=== PATIENT | female | born 2000 | race Caucasian/White ===

== ENCOUNTER 2024-10-05 09:33 | Outpatient (CLI) | payer OTHER, SELFPAY ==
--- NOTE | ~2024-10-05 | US_ITS ---
CORRECTED REPORT corrected examination description [facility] [place] This report was recreated on 10/06/24. Original report was [facility] SANDER EXAMINATION: US OB <=14 wk fetus DATE: 10/05/2024 10:33 INDICATION: Amenorrhea TECHNIQUE: Real-time pelvic ultrasound utilizing a transabdominal probe was performed. The interpreting radiologist was not present for the study. COMPARISON: None. FINDINGS: The uterus measures 9.7 x 6.5 x 3.7 cm. There is an intrauterine gestational sac with a yolk sac and single living fetus. The crown rump length measures 4.1 cm, which correlates with an estimated gestational age of 11 weeks and 0 days. heart motion is identified measuring 170 beats per minute (bpm) by M-mode Doppler. The right ovary measures 2.4 x 1.6 x 1.7 cm. The left ovary measures 3.2 x 1.5 x 2.3 cm. Vascular flow identified in both ovaries on color Doppler. There is no free fluid in the pelvis. IMPRESSION: 1. Single living fetus with heart rate of 170 bpm. 2. Gestational age by ultrasound of 11 weeks 0 day(s) +/- 7 day(s) with ultrasound estimated date of delivery (KIA) of 04/26/2025. Reviewed, dictated and finalized at location A. [facility] MTDD IMPRESSION: 1. Single living fetus with heart rate of 170 bpm. 2. Gestational age by ultrasound of 11 weeks 0 day(s) +/- 7 day(s) with ultras ound estimated date of delivery (KIA) of 04/26/2025.
== END 2024-10-05 09:34 | disposition home or self-care (01) ==
PROVIDERS: Visit Provider Nurse Practitioner Obstetrics & Gynecology
DX: N91.2 Amenorrhea, unspecified (principal)
CPT/HCPCS: 76801; 76817

== ENCOUNTER 2024-11-11 10:05 | Outpatient (CLI) | payer OTHER, SELFPAY ==
[2024-11-14 07:34] LABS: Hematocrit 35.5 % (35.0-45.0); Hemoglobin 11.6 g/dL (11.7-15.5); MCV 91.7 fL (80.0-100.0); RDW 12.2 % (11.0-15.0); Red Blood Cell Count 3.87 Million/uL (3.80-5.10)
== END 2024-11-11 10:06 | disposition home or self-care (01) ==
LOC: ANHLAB 10:06
PROVIDERS: Visit Provider Nurse Practitioner Obstetrics & Gynecology
DX: Z34.90 Encounter for supervision of normal pregnancy, unspecified, unspecified trimester (principal)
CPT/HCPCS: 36415; 83021; 86850; 86900; 86901

== ENCOUNTER 2025-02-24 13:33 | Outpatient (CLI) | payer OTHER, SELFPAY ==
--- OUTSIDE RECORDS SUMMARY | 2025-02-24 13:38 | XMS_ITS | Clinical Summary ---
Author Organization [facility] Address [address] [place] [address] Care Team Providers Care Operations Lead Name Role Phone Unknown, Provider Primary Care Provider UnavailAlberto Crawley MD Unavailable Source Comments [facility],non-owned Affiliates and Associated Physician Practices is amultiple site organization consisting of ambulatory clinics and hospital sitesin [place], [place], [place] and [place]. This disclosure is being madepursuant to the Care Everywhere program and may not contain all information available regarding this patient. Last updated 18.[facility] Allergies No known active allergies Medications * Be aware that medications may not be up to date on this document. Alwaysverify current medications with the patient. fluticasone propionate (FLUTICASONE PROPIONATE) 50 MCG/ACT nasal spray Mullen 1 Mullen into each nostril once daily. Active cetirizine (ZYRTEC) 10 MG tablet Take 10 mg by mouth once daily. 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 Estimated Date of Delivery Comme nts Yes 04/22/2025 Based on last me nstrual period of 07/16/2024 Encounters Date Type Department Care Team Description 02/01/2025 8:15 AM CDT - 02/01/2025 11:59 PM CDT Hospital Encounter [facility] [address] [place] [id number] Venancio Colby MD Discharge Disposition: Home or Self Care 01/04/2025 7:30 AM CDT - 01/04/2025 11:59 PM CDT Hospital Encounter [facility] [address] [place] [address] Ronn De Guzman MD Discharge Disposition: Home or Self Care 12/09/2024 2:06 PM VACUUM CLEANER REPAIR PERSON - 12/09/2024 11:59 PM VACUUM CLEANER REPAIR PERSON Hospital Encounter [facility] [address] [place] [address] Haydee Lemons MD Discharge Disposition: Home or Self Care from Last 3 Months Family History Medical History Relation Name Comments CVA<65(female) Paternal Aunt Arrhythmia Neg Hx CVA<55(male) Neg Hx Cardiomyopathy Neg Hx Congenital Heart defect Neg Hx Heart Surgery Neg Hx Long QT Syndrome Neg Hx NM<55(male) Neg Hx NM<65(female) Neg Hx Marfan Syndrome Neg Hx Pacemaker Neg Hx Sudd. <30 Neg Hx Relation Name Status Comments Paternal Aunt Alive Social History Tobacco Use Types Packs/Day Years Used Date Smoking Tobacco: Never Assessed Estimated Date of Delivery Comme nts Yes 04/22/2025 Based on last me nstrual period of 07/16/2024 Sex and Gender Information Value Date Recorded Sex Assigned at Not on file Legal Sex Female 8:30 AM CDT Gender Identity Not on file Sexual Orientation Not on file Last Filed Vital Signs Vital Sign Reading Time Taken Comments Blood Pressure 104/60 05/26/2013 9:09 AM CDT Pulse 74 05/26/2013 9:09 AM CDT Temperature - - Respiratory Rate 20 05/26/2013 9:09 AM CDT Oxygen Saturation 99% 05/26/2013 9:09 AM CDT Inhaled Oxygen Concentration - - Weight 38 kg (83 lb 12.4 oz) 05/26/2013 9:09 AM CDT Height 149.9 cm (4' 11.02 ) 05/26/2013 9:09 AM C DT Body Mass Index 16.91 05/26/2013 9:09 AM CDT Plan of Treatment Health Maintenance Due Date Last Done Comments PAP SMEAR 2001 HIV SCREENING 2016 HPV VACCINE (1 - 3-dose series) 2016 CHLAMYDIA/GONORRHEA SCREENING 2017 MENINGOCOCCAL (Group B) VACC INE SHARED DECISION-MAKING (1 of 2 - Standard) 2017 HEPATITIS C SCREENING 11/06/2019 DTAP/TDAP/TD VACCINES (1 - Tdap) 2020 HEPATITIS B VACCINE (1 of 3 - 19+ 3-dose series) 2020 COVID-19 VACCINE (1 - 2023-2 5 season) 2024 DEPRESSION SCREENING 10/20/2024 OB-ONE HOUR GLUCOSE 01/14/2025 OB-TDAP CURRENT 01/21/2025 OB-RHOGAM INJECTION 01/28/2025 INFLUENZA VACCINE (Season Ended) 2025 ZOSTER VACCINE (1 of 2) 2051 HIB VACCINE Aged Out No longer eligi ble based on patient's age to complete this topic MENINGOCOCCAL GROUPS A/C/Y/W VACCINE Aged Out No longer eligible b ased on patient's age to complete this topic PNEUMOCOCCAL VACCINE Aged Out No long er eligible based on patient's age to complete this topic Respiratory Syncytial Virus (RSV) Vaccine Pt: or over 60 yrs (No Doses Required) Completed Procedures Procedure Name Priority Date/Time Associated Diagnosis Comments SONOGRAM - COMPLETE Routine 02/01/2025 8 :15 AM CDT Primigravida in third trimester (HCC) 28 weeks gestation of (HCC) SGA (small for gestational age), , affecting care of mother, antepartum, third trimester, other fetus (HCC) Encounter for ultrasound to assess growth (HCC) SONOGRAM - COMPLETE Routine 01/04/2025 7 :52 AM CDT Encounter for ultrasound Primigravida, antepartum 24 weeks gestation of SONOGRAM - COMPLETE Routine 12/09/2024 3 :06 PM VACUUM CLEANER REPAIR PERSON Encounter for ultrasound Primigravida, antepartum 20 weeks gestation of from Last 3 Months Results * SONOGRAM - COMPLETE (02/01/2025 8:15 AM CDT) Only the most recent of3 resultswithin the time period is included. Linked Results Indication ======== Uterine Size < Dates Anatomy Screen Complete History ====== OB History 1 Lab Tests Test Date Result NIPT Declined Maternal Assessment Physical Exam Height 160 cm, 5 ft 3 in. Weight 65 kg, 144 lb. Initial weight 54 kg, 120 lb. BMI 25.51 kg/m . Initial BMI 21.26 kg/m . Weight gain 11 kg, 24 lb Method ====== Transabdominal ultrasound. View: Good view ========= [place] . Number of fetuses: 1 Dating ====== Date Details Gest. age KIA LMP 07/16/2024 28 w + 4 d 04/22/2025 Stated KIA 28 w + 4 d 04/22/2025 U/S 02/01/2025 based upon AC, BPD, Femur, HC 29 w + 0 d 04/19/2025 Assigned dating based on the LMP, selected on 12/09/2024 28 w + 4 d 04/22/2025 General Evaluation Cardiac activity present. FHR 138 bpm. Presentation: cephalic Placenta: Placental site: left lateral Amniotic fluid: Amount of AF: normal. MVP 5.1 cm. WINDY 12.7 cm. Q1 5.1 cm, Q2 3.2 cm, Q3 1.9 cm, Q4 2.4 cm Biometry BPD 74.5 mm 29w 6d 79% Hadlock HC 270.8 mm 29w 4d 47% Hadlock AC 244.0 mm 28w 5d 45% Hadlock Femur 51.7 mm 27w 4d 13% Hadlock Humerus 49.2 mm 29w 0d 51% Aniket HC / AC 1.11 -/- Hadlock Weight Calculation: EFW 1,233 g 34% Hadlock EFW (lb,oz) 2 lb 11 oz EFW by Hadlock ([id number]) appropriate Growth Overview = Exam date GA BPD (mm) HC (mm) AC (mm) FL (mm) HL (mm) EFW (g) 12/09/2024 20w 6d 47.4 28% 171.1 5% 160.5 53% 32.9 22% 30.4 19% 367 33% 01/04/2025 24w 4d 61 51% 224.1 25% 198.4 38% 41.6 11% 39.7 28% 666 24% 02/01/2025 28w 4d 74.5 79% 270.8 47% 244 45% 51.7 13% 49.2 51% 1233 34% Anatomy The following structures appear normal: Heart / Thorax 4-chamber view. Abdomen Stomach. Kidneys. Bladder. sex: male. Impression ========= Single, live, intrauterine at 28w 4d The size is appropriate. The amniotic fluid volume is normal. No major malformations were seen within the limitations of ultrasound Follow-up ======== Follow up as clinically indicated Coding ====== Procedures [id number]: US Preg Uterus Follow Up [employer] Interaction PACS Anatomical Region Laterality Modality Other 02/01/2025 8:15 AM CDT Lior Turcios MD [facility] ORDERABLES Edited Result - Final from Last 3 Months Insurance [employer] [facility] Address: [facility] [id number] [place] [address] MEDICAID - [place] Care Teams Operations Lead Relationship Specialty Start Date End Date Unknown, Provider PCP - General 12/09/24 Alberto Tomlinson MD [address] [place] [address] Family Medicine 12/09/24
--- OUTSIDE RECORDS SUMMARY | 2025-02-24 13:38 | XMS_ITS | Clinical Summary ---
Author Organization [facility] Address [address] [place] [address] Phone Care Team Providers Care Dishroom Attendant Name Role Phone Unavailable Primary Care Provider Unavailabl e Medications VIT-IRON FUM-FOLIC AC ORAL Take by mouth. Active Active Problems Problem Noted Date Diagnosed Date Syncope 08/24/2024 Estimated Date of Delivery Comme nts Yes 04/22/2025 Based on last me nstrual period of 07/16/2024 Social History Tobacco Use Types Packs/Day Years Used Date Smoking Tobacco: Never Smokeless Tobacco: Never Tobacco Cessation:Counseling Given: Not Answered Alcohol Use Standard Drinks/Week Comments Never 0 (1 standard drink = 0.6 oz pur e alcohol) Feeling Safe Answer Date Recorded Are you in a relationship wi th someone who hurts you emotionally and/or physically? No 08/24/2024 Estimated Date of Delivery Comme nts Yes 04/22/2025 Based on last me nstrual period of 07/16/2024 Sex and Gender Information Value Date Recorded Sex Assigned at Not on file Legal Sex Female 10:45 AM ECHO VASCULAR TECH Gender Identity Not on file Sexual Orientation Not on file Last Filed Vital Signs Vital Sign Reading Time Taken Comments Blood Pressure 128/69 08/24/2024 11:23 AM ECHO VASCULAR TECH Pulse 98 08/24/2024 10:36 AM ECHO VASCULAR TECH Temperature 36.9 C (98.5 F) 08/24/2024 10:36 AM ECHO VASCULAR TECH Respiratory Rate 20 08/24/2024 10:36 AM ECHO VASCULAR TECH Oxygen Saturation 100% 08/24/2024 10:36 AM ECHO VASCULAR TECH Inhaled Oxygen Concentration - - Weight 54.4 kg (120 lb) 08/24/2024 11:14 AM ECHO VASCULAR TECH perpatient Height 161.3 cm (5' 3.5 ) 08/24/2024 11:14 AM CS T Body Mass Index 20.92 08/24/2024 11:14 AM ECHO VASCULAR TECH Plan of Treatment Upcoming Encounters Date Type Department Care Team (Late st Contact Info) Description 04/22/2025 Hospital Encounter [facility] OB Triage [address] [place] [address] Sarah Rogers MD [address] [place] [address] Health Maintenance Due Date Last Done Comments CHLAMYDIA SCREENING (ANNUAL) 11-24 YEARS 2012 HPV/Cotest (21-29) 2022 DTAP/TDAP/TD VACCINES (8 - T d or Tdap) 05/28/2023 05/28/2013, 05/28/2013, 12/19/2005, Additional history exists INFLUENZA VACCINE (#1) 2024 07/30/2017 CERVICAL CANCER SCREENING 07/10/2026 PAP SMEAR 07/10/2026 07/10/2023 HEPATITIS B VACCINES Completed 11/11/2002, 04/09/2002, 02/26/2002 HPV VACCINES Completed 05/19/2014, 05/28/2013 RSV VACCINE (60+ or ) (No Doses Required) Completed Insurance [employer] Advance Directives For more information, please contact: [phone] * Full Code (Latest Code Status on File) Date Activated Date Inactivated Comments 08/24/2024 11:08 AM 08/24/2024 3:46 PM
[2025-02-24 13:59] LABS: Hematocrit 35.6 % (37.0-47.0); Hemoglobin 11.7 g/dL (12.0-15.0); Mean Corpuscular HGB Conc 32.9 g/dl (32-36); Mean Corpuscular Hemoglobin 30.2 pg (26-34); Mean Corpuscular Volume 91.8 fl (80-100); Platelet Count Result 183 k/mm3 (150-375); Red Blood Count 3.88 M/mm3 (4.2-5.4); Red Cell Distribution Width 12.6 % (11.5-14.5); White Blood Count 10.8 K/mm3 (4.5-10.0)
[2025-02-24 16:35] LABS: Syphilis IgG/IgM Antibody Negative (Negative)
[2025-02-24 16:49] LABS: HIV 1/2 Ab P24 Ag Result Negative (Negative)
== END 2025-02-24 13:34 | disposition home or self-care (01) ==
LOC: ANHLAB 13:37
PROVIDERS: PCP Internal Medicine; Visit Provider Nurse Practitioner Obstetrics & Gynecology
DX: Z34.90 Encounter for supervision of normal pregnancy, unspecified, unspecified trimester (principal)
CPT/HCPCS: 36415; 85027; 86593; 86703; G0432

== ENCOUNTER 2025-03-28 10:57 | Outpatient (CLI) | payer OTHER, SELFPAY ==
[2025-03-28] VITALS (7 sets, daily range): BP systolic 90–116; BP diastolic 42–66; PULSE 74–88
[2025-03-28 11:53] LABS: Basophils Absolute Auto 0.1 K/mm3 (0.0-0.1); Basophils Percent Auto 0.6 % (0.2-1.2); Eosinophils Absolute Auto 0.2 K/mm3 (0-0.3); Eosinophils Percent Auto 1.7 % (0-4.4); Hematocrit 35.1 % (37.0-47.0); Hemoglobin 11.6 g/dL (12.0-15.0); Immature Granulocyte Absolute 0.16 K/mm3 (0.00-0.031); Immature Granulocyte Percent A 1.6 % (0-0.5); Lymphocytes Absolute Auto 1.96 K/mm3 (0.9-3.2); Lymphocytes Percent Auto 19.6 % (18.3-44.2); Mean Corpuscular Hemoglobin 30.3 pg (26-34); Mean Corpuscular Volume 91.6 fl (80-100); Mean Platelet Volume 10.3 fl (7.4-10.4); Monocytes Absolute Auto 0.7 K/mm3 (0.1-0.6); Monocytes Percent Auto 7.3 % (2.6-8.5); Neutrophils Absolute Auto 6.9 K/mm3 (1.3-6.7); Neutrophils Percent Auto 69.2 % (45.5-73.1); Platelet Count Result 174 k/mm3 (150-375); Red Blood Count 3.83 M/mm3 (4.2-5.4); Red Cell Distribution Width 12.7 % (11.5-14.5)
[2025-03-28 12:00] LABS: Creatinine Urine 60.7 mg/dL; Total Protein Urine Random 12 mg/dL
[2025-03-28 12:04] LABS: Alanine Aminotransferase 19 U/L (6-35); Albumin Level 3.3 g/dL (3.5-5.1); Alkaline Phosphatase 184 U/L (38-126); Anion Gap 7 mmol/L (4-12); Aspartate Amino Transferase 24 U/L (14-36); Bilirubin,Total 0.2 mg/dL (0.2-1.3); Blood Urea Nitrogen 7 mg/dL (7-17); Calcium 8.6 mg/dL (8.4-10.2); Carbon Dioxide 20 mmol/L (22-30); Chloride 109 mmol/L (98-107); Estimated Glomerular Filt Rate > 60; Glucose 112 mg/dL (65-110); Potassium 3.4 mmol/L (3.4-5.0); Sodium 136 mmol/L (137-145); Total Protein 6.2 g/dL (6.3-8.2); Uric Acid 4.9 mg/dL (2.5-7.5)
[2025-03-28 12:07] LABS: Add Urine Microscopic? YES; Appearance Urine Clear (Clear); Bacteria Urine 2+ /hpf; Bilirubin Urine Negative (Negative); Blood Urine Negative (Negative); Color Urine Yellow (Yellow); Glucose Urine UA Negative (Negative); Ketones Urine Negative (Negative); Leukocyte Esterase Ur Trace LEU/UL (Negative); Need Manual Microscopic Reviewed; Nitrate Urine Negative (Negative); Non Pathogenic Casts 0-2; Protein Urine Negative (Negative); RBC Urine 0-2 /hpf (0-2); Specific Grav Ur 1.014 (1.001-1.035); Squamous Epithelial Cell Urine None Seen /hpf (Few); Urobilinogen Urine 0.2 mg/dL (<2.0); WBC Urine 21-50 /hpf (0-3); pH Urine 7.5 (5.0-9.0)
--- OUTSIDE RECORDS SUMMARY | 2025-03-28 12:37 | XMS_ITS | Referral Summary ---
Author Organization [facility] Address [address] [place] [address] Care Team Providers Care Manager Cost Name Role Phone Lorena Mcgraw MD Primary Care Provider [phone] Lorena Mcgraw MD Unavailable [phone] Allergies No known active allergies Medications cetirizine (ZyrTEC) 10 mg tablet Take 1 tablet (10 mg total) by mouth daily Active naproxen (NAPROSYN) 500 mg tablet Take 1 tablet (500 mg total) by mouth 2 (two) times a day as needed for pain (pain) 60 tablet 1 Active Additional Information Patient taking differently:500 mg oralAs needed, pain, pain, Reported on 01/23/2023 ALPRAZolam (XANAX) 0.25 mg tabletIndicatio ns:Anxiety and depression Take 1 tablet (0.25 mg total) by mouth daily as needed for anxiety 30 tablet 2 2 Active zolpidem (AMBIEN) 5 mg tablet Take 1 tablet (5 mg total) by mouth nightly 30 tablet 3 Active fluticasone propionate (FLONASE) 50 mcg/actuation nasal sprayIndication s:Fever with sore throat,Sore throat,Strep throat,Acute non-recurrent maxillary sinusitis Administer 2 sprays into each nostril daily 16 g 3 Active mometasone (ELOCON) 0.1 % creamIndication s:Dermatitis Apply topically daily 30 g 3 Active Active Problems Problem Noted Date Diagnosed Date Encounter for well woman exa m with routine gynecological exam 07/10/2023 Assessment & Plan (07/24/2023 11:06 AM CDT): Pap done Well adult exam 07/10/2023 Dermatitis 05/16/2023 Assessment & Plan (05/16/2023 9:36 AM CDT): New Likely from new cream Order elocon Sore throat 01/17/2023 Strep throat 01/17/2023 Assessment & Plan (01/17/2023 7:19 AM CDT): Strep test positive Flu swab/covid swab negative Order zpack, flonase, singualir Fever with sore throat 01/06/2023 Assessment & Plan (01/17/2023 7:19 AM CDT): Flu swab/covid swab negative Order zpack, flonase, singualir Low serum vitamin D 06/18/2021 Assessment & Plan (12/17/2021 10:26 AM DOCUMENT IMAGING MANAGER): The patient is currently on vitamin-D replacement that is been ordered by her primary care physician. Assessment & Plan (06/18/2021 10:20 AM CDT): I did advise the patient to call or message her primary care physician regarding the low vitamin-D level. The patient verbalized understanding. The patient was informed that taking vitamin-D may help with her energy level. Anxiety and depression 05/18/2021 Assessment & Plan (01/14/2022 9:22 PM CDT): Chronic Patient would like to continue with xanax PRN for now Refer to psych Assessment & Plan (12/08/2021 10:27 AM DOCUMENT IMAGING MANAGER): Chronic Patient would like to continue with xanax PRN for now Refer to psych Assessment & Plan (10/31/2021 5:34 AM DOCUMENT IMAGING MANAGER): Still not controlled Retry abilify Use xanax PRN Assessment & Plan (06/09/2021 7:23 PM CDT): Improving Increase wellbutrin to 300mg daily Assessment & Plan (05/18/2021 9:46 AM CDT): Uncontrolled Start wellbutrin Continue with counselor Bilateral swelling of feet 03/14/2021 Assessment & Plan (03/21/2021 4:21 AM CDT): New Unknown etiology Order xray Order labs Refer to podiatry Pain in both feet 03/14/2021 Assessment & Plan (03/21/2021 4:21 AM CDT): New Unknown etiology Order xray Order labs Refer to podiatry Chronic fatigue 02/06/2021 Assessment & Plan (02/06/2021 11:07 AM CDT): I will check a CBC, TSH, vitamin B12 and vitamin-D level. Snoring 12/12/2020 Assessment & Plan (08/25/2023 11:03 AM DOCUMENT IMAGING MANAGER): She has primary snoring and her does not witnessed any apneic episodes. Assessment & Plan (01/23/2023 3:10 PM CDT): She is maintaining her weight and still has some snoring. Assessment & Plan (07/25/2022 3:51 PM CDT): Will continue positional therapy Assessment & Plan (03/14/2022 11:48 AM CDT): Patient will continue with positional therapy. Patient and I discussed weight reduction and exercise along with a snore guard. Assessment & Plan (12/17/2021 10:26 AM DOCUMENT IMAGING MANAGER): The patient was encouraged to try and exercise. Assessment & Plan (06/18/2021 10:19 AM CDT): Patient will continue to use positional therapy and exercise program. Assessment & Plan (02/06/2021 11:06 AM CDT): The patient had light snoring during the nocturnal polysomnogram and there are no snoring related arousals. Assessment & Plan (12/12/2020 2:20 PM DOCUMENT IMAGING MANAGER): The patient will continue to practice positional therapy. Sleep paralysis 12/12/2020 Assessment & Plan (08/25/2023 11:03 AM DOCUMENT IMAGING MANAGER): Her sleep paralysis has resolved. She will follow-up with me on a p.r.n. basis. Assessment & Plan (01/23/2023 3:10 PM CDT): The patient is having an episode of sleep paralysis about once every 3 months. Assessment & Plan (07/25/2022 4:08 PM CDT): I would recommend the patient get a referral for psychiatry. We do not have any evidence on her sleep study/MSLT that would explain the sleep paralysis and hallucinations. Patient states that she does have anxiety and depression that is not currently being treated adequately. Patient sleep paralysis/hallucinations occur more often when she is not sleeping at home. Appears to be stress related. Assessment & Plan (03/14/2022 11:49 AM CDT): The patient has a history of depression and anxiety. The patient also has disruptive sleep patterns. Assessment & Plan (12/17/2021 10:26 AM DOCUMENT IMAGING MANAGER): The patient's last episode of sleep paralysis was approximately 1 month ago. She states they sleep paralysis occurring loss. Assessment & Plan (06/18/2021 10:19 AM CDT): The patient states that she has had 2 episodes of sleep paralysis since her last visit. Assessment & Plan (02/06/2021 11:07 AM CDT): The patient continues to have 2-4 episodes of sleep paralysis per month. There is no evidence of obstructive sleep apnea or narcolepsy. Assessment & Plan (12/12/2020 2:20 PM DOCUMENT IMAGING MANAGER): Due to the sleep paralysis I have ordered a nocturnal polysomnogram with dedicated MSLT Acute non-recurrent maxillary sinusitis 11/15/19 Assessment & Plan (01/17/2023 7:19 AM CDT): Flu swab/covid swab negative Order vanessa kulkarni, singualir Assessment & Plan (11/15/2020 5:21 AM DOCUMENT IMAGING MANAGER): New Order shad, vanessa, margarito-d Current moderate episode of major depressive disorder without prior episode 05/02/2020 Assessment & Plan (05/02/2020 3:04 PM CDT): Seeing counselor already regularly Discussed meds, wants to hold off on anything else Tried Lexapro and celexa in the past Overall mood has improved with new living situation Monitor closely Anxiety 05/02/2020 Assessment & Plan (04/02/2021 6:08 AM CDT): Uncontrolled Start celexa at 20mg Assessment & Plan (11/02/2020 2:31 PM DOCUMENT IMAGING MANAGER): Continue hydroxyzine PRN for now - aware to avoid taking with Ambien at bedtime, but may use for daytime anxiety/panic attacks. Seeing counselor. Discussed medication change, but patient prefers to keep things the same for now. Assessment & Plan (05/02/2020 3:04 PM CDT): Likely contributing to sleep issues Continue atarax PRN for anxiety/sleep Insomnia 05/02/2020 Assessment & Plan (08/25/2023 11:03 AM DOCUMENT IMAGING MANAGER): The patient's insomnia is under control with cognitive behavioral therapy for insomnia. Assessment & Plan (01/23/2023 3:09 PM CDT): The insomnia has improved with journaling and cognitive behavioral therapy for insomnia Assessment & Plan (07/25/2022 3:51 PM CDT): Will continue cognitive behavior therapy for insomnia Assessment & Plan (03/14/2022 11:48 AM CDT): I have discussed cognitive behavior therapy with the patient. The patient was also provided 2 pamphlets in regards to sleeping better and insomnia. I have instructed the patient the gold standard of treating insomnia is cognitive behavior therapy. Avoidance of caffeine sources is strongly encouraged. Sleep restriction and Sleep hygiene issues are reviewed. The use of sedative hypnotics for temporary relief is appropriate; we discussed the addictive nature of these drugs. The patient does have a prescription for Ambien as provided by her primary care Assessment & Plan (12/17/2021 10:26 AM DOCUMENT IMAGING MANAGER): The patient will go back on to the Ambien 5 mg p.o. Q bedtime. The patient was informed to improve on her sleep-wake schedule. Assessment & Plan (06/18/2021 10:18 AM CDT): Patient continue to use Ambien 5 mg p.o. Q bedtime. Assessment & Plan (02/06/2021 11:06 AM CDT): The patient is occasionally using Ambien 5 mg at bedtime. Assessment & Plan (12/12/2020 2:20 PM DOCUMENT IMAGING MANAGER): The patient continue to use Ambien 5 mg PO Q HS. Assessment & Plan (11/02/2020 2:30 PM DOCUMENT IMAGING MANAGER): Seeing sleep medicine, Dr. Mandel Continue Ambien PRN Assessment & Plan (05/02/2020 3:05 PM CDT): Irregular sleep, trouble falling and staying asleep - sleep talking and episodes of sleep paralysis per patient- refer to sleep med Other constipation 05/02/2020 Assessment & Plan (05/02/2020 3:07 PM CDT): Advised exercise, increased fluids, increased fiber intake Ok for colace PRN Would avoid frequent use of laxatives Immunizations Immunization Administration Dates Next Due DTaP 12/19/2005, 3,05/25/2002,04/09,02/26/2002 DTaP, Unspecified 12/19/2005, 3,05/25/2002,04/09,02/26/2002 HPV, Quadrivalent 05/19/2014,05/28/2013 Hep A, 3 Dose 12/19/2005 Hep B, Adolescent or Pediatric 11/11/2002,2001,02/26/2002 Hep B, Unspecified 11/11/2002,04/09/2002, 002 HiB 12/19/2005, 2,04/09/2002,02/26 Hib (PRP-T) 11/11/2002, 2,04/09/2002,02/26 IPV 12/19/2005, 2,04/09/2002,02/26 Influenza, Quadrivalent, Spl it, Preservative Free, Intramuscular 07/30/2017 Influenza, Unspecified 07/20/2022(Deferr ed: Patient Refused),09/17/2021(Deferred: Patient Refused),08/08/2020(Deferred: Patient Refused),08/08/2020(Deferred: Patient Refused),07/20/2020(Deferred: Patient Refused),12/19/2005,11/07/2005 MMR 12/19/2005, 6,11/11/2005,11/11 Meningococcal Conjugate (Menveo) 04/26/2019 Meningococcal MCV4P (Menactra) 05/28/2013 Pfizer SARS-CoV-2 Monovalent Vaccination (12+ Yrs) PURPLE 04/13/2021,03/23/2021 Pneumococcal Conjugate PCV 13 12/19/2005, 002 Pneumococcal Polysaccharide PPV23 12/19/2005 Polio, Unspecified 12/19/2005, 2,04/09/2002,02/26 Tdap 05/28/2013 Varicella 05/28/2013,02/10/2003,02/10/2003 Social History Tobacco Use Types Packs/Day Years Used Date Smoking Tobacco: Never Smokeless Tobacco: Never Alcohol Use Standard Drinks/Week Comments Never 0 (1 standard drink = 0.6 oz pur e alcohol) AUDIT-C Answer Date Recorded Q1: How often do you have a drink containing alc ohol? Monthly or less 05/16/2023 Q2: How many drinks containi ng alcohol do you have on a typical day when you are drinking? 1 or 2 05/16/2023 Q3: How often do you have si x or more drinks on one occasion? Never 05/16/2023 PHQ-2 Answer Date Recorded PHQ-2 Total Score (If total score is 3 or more points, staff should administer the PHQ-9) 0 01/06/2023 Personal Safety Answer Date Recorded Getting School Help Needed Not on file 11/17 Comments No Sex and Gender Information Value Date Recorded Sex Assigned at Not on file Legal Sex Female 12:59 PM CDT Gender Identity Female 09/17/2021 2:47 PM DOCUMENT IMAGING MANAGER Sexual Orientation Straight 09/17/2021 2: 47 PM DOCUMENT IMAGING MANAGER Last Filed Vital Signs Vital Sign Reading Time Taken Comments Blood Pressure 94/52 08/25/2023 10:34 AM DOCUMENT IMAGING MANAGER Pulse 90 08/25/2023 10:34 AM DOCUMENT IMAGING MANAGER Temperature 36.7 C (98.1 F) 08/25/2023 10:34 AM DOCUMENT IMAGING MANAGER Respiratory Rate 18 08/25/2023 10:34 AM DOCUMENT IMAGING MANAGER Oxygen Saturation 91% 08/25/2023 10:34 AM DOCUMENT IMAGING MANAGER Inhaled Oxygen Concentration - - Weight 54 kg (119 lb) 08/25/2023 10:34 AM DOCUMENT IMAGING MANAGER Height 162.6 cm (5' 4) 08/25/2023 10:34 AM DOCUMENT IMAGING MANAGER Body Mass Index 20.43 08/25/2023 10:34 AM DOCUMENT IMAGING MANAGER Plan of Treatment Not on file Procedures Procedure Name Priority Date/Time Associated Diagnosis Comments PAP WITH REFLEX TO HIGH RISK HPV Routine 07/10/2023 11:40 AM CDT Encounter for well woman exam with routine gynecological exam Well adult exam from Last 3 Months or Most Recently Relevant to Health Maintenance Results * Pap with reflex to High Risk HPV and Genotyping (Cytology Component) (07/10/2023 11:40 AM CDT) Thin prep (Pap test) 07/10/2023 11:40 AM CDT 07/11/2023 11:40 AM CDT Narrative PATHOLOGY [facility] - 07/14/2023 1:50 PM CDT [facility] Department of Pathology [address] [place], [place] [id number] Final Report Note to Patients: This report may contain a detailed description of human tissue sent by a health care provider to the laboratory for pathologic evaluation. The content of this report is essential for diagnosis and may provide important critical findings. This information may be unfamiliar to patients to review without a medical professional present. It is advised that the patient review this report in the presence of a health care provider who can answer questions and explain the details. Patient Name: JO GRIFFIN Address: [address] [place] [address] [place] [address] Gender: F : 2000 (Age: 22) Service: Location: [facility] : [id number] Hospital #: [id number] Patient Type: [facility] SPECIMEN Taken: 07/10/2023 Received: 07/11/2023 Accessioned:: 07/11/2023 Reported: 07/14/2023 Physician(s): Dr. Lorena Mcgraw M.D. [facility] Diagnosis: SOURCE OF SPECIMEN Imaged Thinprep Pap Test w/ Reflex HPV - Therapist Occupational Cytologic Material: STATEMENT OF ADEQUACY - Specimen satisfactory for evaluation (vaginal pap) GENERAL CATEGORIZATION: - Negative for intraepithelial lesion or malignancy ABNER Latham(ASCP) Report Electronically Reviewed and Signed Out By ABNER Latham(ASCP) 07/14/2023 13:50:46Specimen(s) Received: A: Imaged Thinprep Pap Test w/ Reflex HPV - Therapist Occupational Cytologic Material Clinical History: The Pap test is a screening test used to aid in the detection of cervical cancer and its precursors. It should not be the sole means by which malignant and premalignant lesions are diagnosed. Both false negative and false positive results may occur. It also has poor sensitivity for the detection of endometrial lesions and should not be used to evaluate suspected endometrial abnormalities. For these reasons it is most important to obtain Pap tests at regular intervals. The performance characteristics of some immunohistochemical stains, fluorescence in-situ hybridization tests and immunophenotyping by flow cytometry cited in this report (if any) were determined by the Surgical Pathology Department at [facility] as part of an ongoing quality improvement analyst program and in compliance with federally mandated regulations drawn from the Clinical Laboratory Improvement Act of 1988 (CLIA '88). Some of these tests rely on the use of analyte specific reagents and are subject to specific labeling requirements by the US Food and Drug Administration. Such diagnostic tests may only be performed in a facility that is certified by the Department of Health and Human Services as a high complexity laboratory under CLIA '88. The FDA has determined that such clearance or approval is not necessary. This test is used for clinical purposes. It should not be regarded as investigational or for research. Nevertheless, federal rules concerning the medical use of analyte specific reagents require that the following disclaimer be attached to the report: This test was developed and its performance characteristics determined by the Surgical Pathology Department [facility]. It has not been cleared or approved by the U. S. Food and Drug Administration. Lorena Mcgraw MD LAB CYTOLOGY ORDERABLES F inal Result PATHOLOGY [facility] from Last 3 Months or Most Recently Relevant to Health [place] [address] [facility] Member Subscriber Plan / Payer (Ef fective 2021-Present) Name:Oleg Jo Relation to Subscriber:Self Name:Alex Dejesusth Payer ID:[id number] (NAIC) Group ID:Not on file Type:MEDICAID RISK OTHER Address: [address] [place], [place] [id number] [place] [address] [facility] Care Teams Manager Cost Relationship Specialty Start Date End Date Lorena Mcgraw MD PCP - General 05/09/20 Lorena Mcgraw MD Family Medicine 05/09/20
--- OUTSIDE RECORDS SUMMARY | 2025-03-28 12:37 | XMS_ITS | Clinical Summary ---
Author [facility] Address [address] [place] [address] Care Team Providers Care Associate Manager Name Role Phone Lorena Mcgraw MD Primary Care Provider [phone] Lorena Mcgraw MD Unavailable [phone] Allergies No known active allergies Medications cetirizine [...] 06/18/2021 Assessment & Plan (12/17/2021 10:26 AM BARREL RIFLER BROACH): The patient is currently on vitamin-D replacement [...] psych Assessment & Plan (12/08/2021 10:27 AM BARREL RIFLER BROACH): Chronic Patient would like to continue with xanax PRN for now Refer to psych Assessment & Plan (10/31/2021 5:34 AM BARREL RIFLER BROACH): Still not controlled Retry abilify Use xanax [...] 12/12/2020 Assessment & Plan (08/25/2023 11:03 AM BARREL RIFLER BROACH): She has primary snoring and her does [...] guard. Assessment & Plan (12/17/2021 10:26 AM BARREL RIFLER BROACH): The patient was encouraged to try and exercise. Assessment & Plan (06/18/2021 10:19 AM CDT): Patient will continue to use positional therapy and exercise program. Assessment & Plan (02/06/2021 11:06 AM CDT): The patient had light snoring during the nocturnal polysomnogram and there are no snoring related arousals. Assessment & Plan (12/12/2020 2:20 PM BARREL RIFLER BROACH): The patient will continue to practice positional therapy. Sleep paralysis 12/12/2020 Assessment & Plan (08/25/2023 11:03 AM BARREL RIFLER BROACH): Her sleep paralysis has resolved. She will [...] patterns. Assessment & Plan (12/17/2021 10:26 AM BARREL RIFLER BROACH): The patient's last episode of sleep paralysis [...] narcolepsy. Assessment & Plan (12/12/2020 2:20 PM BARREL RIFLER BROACH): Due to the sleep paralysis I have ordered a nocturnal polysomnogram with dedicated MSLT Acute non-recurrent maxillary sinusitis 11/15/19 Assessment & Plan (01/17/2023 7:19 AM CDT): Flu swab/covid swab negative Order vanessa kulkarni, singualir Assessment & Plan (11/15/2020 5:21 AM BARREL RIFLER BROACH): New Order shad, vanessa, margarito-d Current moderate [...] 20mg Assessment & Plan (11/02/2020 2:31 PM BARREL RIFLER BROACH): Continue hydroxyzine PRN for now - aware to avoid taking with Ambien at bedtime, but may use for daytime anxiety/panic attacks. Seeing counselor. Discussed medication change, but patient prefers to keep things the same for now. Assessment & Plan (05/02/2020 3:04 PM CDT): Likely contributing to sleep issues Continue atarax PRN for anxiety/sleep Insomnia 05/02/2020 Assessment & Plan (08/25/2023 11:03 AM BARREL RIFLER BROACH): The patient's insomnia is under control with [...] care Assessment & Plan (12/17/2021 10:26 AM BARREL RIFLER BROACH): The patient will go back on to [...] bedtime. Assessment & Plan (12/12/2020 2:20 PM BARREL RIFLER BROACH): The patient continue to use Ambien 5 mg PO Q HS. Assessment & Plan (11/02/2020 2:30 PM BARREL RIFLER BROACH): Seeing sleep medicine, Dr. Mandel Continue Ambien [...] Unspecified 12/19/2005, 2,04/09/2002,02/26 Tdap 05/28/2013 Varicella 05/28/2013,02/10/2003,02/10/2003 Surgical History Surgery Date Site/Laterality Comments NO PAST SURGERIES Medical History Medical History Date Comments Anxiety Depression Urinary tract infection Family History Medical History Relation Name Comments No Known Problems Father No Known Problems Mother Diabetes Paternal Grandfather Vu Griffin Breast cancer Paternal Grandmother Cystic fibrosis Sister Relation Name Status Comments Brother Alive Father Alive Mother Alive Paternal Grandfather Vu Griffin Alive Paternal Grandmother Alive Sister Alive Social History Tobacco Use Types Packs/Day [...] CDT Gender Identity Female 09/17/2021 2:47 PM BARREL RIFLER BROACH Sexual Orientation Straight 09/17/2021 2: 47 PM BARREL RIFLER BROACH Obstetrics History Last Filed Vital Signs Vital Sign Reading Time Taken Comments Blood Pressure 94/52 08/25/2023 10:34 AM BARREL RIFLER BROACH Pulse 90 08/25/2023 10:34 AM BARREL RIFLER BROACH Temperature 36.7 C (98.1 F) 08/25/2023 10:34 AM BARREL RIFLER BROACH Respiratory Rate 18 08/25/2023 10:34 AM BARREL RIFLER BROACH Oxygen Saturation 91% 08/25/2023 10:34 AM BARREL RIFLER BROACH Inhaled Oxygen Concentration - - Weight 54 kg (119 lb) 08/25/2023 10:34 AM BARREL RIFLER BROACH Height 162.6 cm (5' 4) 08/25/2023 10:34 AM BARREL RIFLER BROACH Body Mass Index 20.43 08/25/2023 10:34 AM BARREL RIFLER BROACH Plan of Treatment Health Maintenance Due Date Last Done Comments Chlamydia and Gonorrhea (GC/ CT) Screening 2000 Hepatitis C Screening 2000 Meningococcal B Vaccine (1 o f 2 - Standard) 2017 DTaP/Tdap/Td Vaccine (7 - Td or Tdap) 05/28/2023 05/28/2013, 12/19/2005, 12/19/2005, Additional history exists Depression Screening 01/07/2024 01/06/2023, 06/08/2021, 06/08/2021, Additional history exists Covid-19 Vaccine (3 - 2023-2 5 season) 2024 04/13/2021, 03/23/2021 Cervical Cancer Screening 07/10/2024 07/10/2023 Regular Well Visit/Exam 18-64 07/10/2024 07/10/2023 Influenza Vaccine (Season Ended) 2025 07/30/2017, 12/19/2005, 11/07/2005 Hepatitis B Screening Completed 11/11/2002 , 11/11/2002, 04/09/2002, Additional history exists Pneumococcal vaccine <65 Completed 006, 12/19/2005, 02/10/2002 Varicella Vaccines Completed 05/28/2013, 0 02/10/2003, 02/10/2003 HPV Vaccines Completed 05/19/2014, 05/28/2013 Procedures Procedure Name Priority Date/Time Associated Diagnosis [...] CDT 07/11/2023 11:40 AM CDT Narrative PATHOLOGY [facility] - 07/14/2023 1:50 PM CDT [facility] Department of Pathology [address] [place], [place] [id number] Final Report Note to Patients: This report [...] the details. Patient Name: JO GRIFFIN Address: [address] [place] [address] [place] [address] Gender: F : 2000 (Age: 22) Service: Location: [facility] #: [id number] Patient Type: [facility] SPECIMEN Taken: 07/10/2023 Received: 07/11/2023 Accessioned:: 07/11/2023 Reported: 07/14/2023 Physician(s): Dr. Lorena Mcgraw M.D. [facility] Diagnosis: SOURCE OF SPECIMEN Imaged Thinprep Pap Test w/ Reflex HPV - Configuration Management Manager Cytologic Material: STATEMENT OF ADEQUACY - Specimen satisfactory for evaluation (vaginal pap) GENERAL CATEGORIZATION: - Negative for intraepithelial lesion or malignancy ABNER Latham(ASCP) Report Electronically Reviewed and Signed Out By ABNER Latham(ASCP) 07/14/2023 13:50:46Specimen(s) Received: A: Imaged Thinprep Pap Test w/ Reflex HPV - Configuration Management Manager Cytologic Material Clinical History: The Pap test [...] determined by the Surgical Pathology Department at [facility] as part of an ongoing quality assurance lead program and in compliance with federally mandated [...] characteristics determined by the Surgical Pathology Department [facility]. It has not been cleared or approved by the U. S. Food and Drug Administration. Lorena Mcgraw MD LAB CYTOLOGY ORDERABLES F inal Result PATHOLOGY [facility] from Last 3 Months or Most Recently Relevant to Health Maintenance Insurance [facility] [place] [address] [facility] Care Teams Associate Manager Relationship Specialty Start Date End Date Lorena Mcgraw MD PCP - General 05/09/20 Lorena Mcgraw MD Family Medicine 05/09/20
--- OUTSIDE RECORDS SUMMARY | 2025-03-28 12:37 | XMS_ITS | Data Portability ---
Author Organization [facility], [employer] Address [address] [facility] [address] [facility] [address] [place] [address] Assessment Encounter Date Assessment Date Assessment LastModified by Organization Details LastModified Time 12/10/2023 12/10/2023 New patient presented for admission to the practice. Studies ordered as below. Discussed plan with patient, who expressed understanding . Follow up as noted below. [email or web address] Not available 12/10/2023 15:05:55 12/16/2024 12/16/2024 Patient presented for follow up. Studies ordered as below. Discussed plan with patient/dee carreroer, who expressed understanding . Follow up as noted below. New patient presented for admission to the practice. Studies ordered as below. Discussed plan with patient, who expressed understanding . Follow up as noted below. [email or web address] Not available 12/16/2024 13:14:47 Plan of Treatment Reminders Order Date Submit Date Provider Last Modified By Organization Details Last Modified Time Details Appointments ESTABLISH ED PATIENT 15 2025 11:00A Gabriella Souza MD Not available Not available Not available Lab lipid panel w/ direct LDL, serum 2024 025 [facility], [address], [place], [address], 12/16/2024 13:23:51 CMP, serum or plasma 2024 025 [facility], [address], [place], [address], 01/21/2025 10:37:22 CBC w/ auto diff 2024 025 [facility], [address], [place], [address], 01/21/2025 10:37:21 TSH, serum or plasma [address] [facility], [address], [place], [address], 12/16/2024 13:23:51 hemoglobi n A1c, QN, blood [address] [facility], [address], [place], [address], 12/16/2024 13:23:50 C-peptide , serum [address] [facility], [address], [place], [address], 01/21/2025 10:37:25 tb (M tuberculo sis), ifn-gamma mayte, blood 2023 024 [facility], [address], [place], [address], 12/10/2023 15:14:56 lipid panel w/ direct LDL, serum 2023 024 [facility], [address], [place], [address], 12/10/2023 15:14:56 CMP, serum or plasma [address] [facility], [address], [place], [address], 05/25/2024 17:12:52 CBC w/ auto diff [address] [facility], [address] [place], [address], 05/25/2024 17:12:53 TSH, serum or plasma 2023 024 [facility], [address] [place], [address], 12/10/2023 15:14:56 hemoglobi n A1c, QN, blood [address] [facility], [address], [place], [address], 12/10/2023 15:14:56 C-peptide , serum [address] [facility], [address], [place], [address], 12/10/2023 15:14:56 glucose tolerance test, 2-hour 2023 024 [facility], [address], [place], [address], 12/10/2023 15:14:56 Referral cardiolog ist referral 2024 025 [place] [address] Bryan Newton MD, [address] [facility], [place], [address], 12/16/2024 13:43:[address] referral [email or web address] [facility], [address] [facility] [address], [place], [address], 12/16/2024 13:43:35 Procedures None recorded. Surgeries None recorded. Imaging electroca rdiogram 2024 025 [facility], [facility], [address], [place], [address], 12/16/2024 13:53:36 Medication Orders None recorded. Patient TargetsNo targets recorded. 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 6 low SRINIVAS L RANGE BASED ON CJ COL 2 (DCCT /NGSP ): Non-D iabet ic: < 5.7% Pre-D iabet es: 5.7 - 6.4% Diabe dahlia: => 6.5% GLYCE NGA CONTR OL: < 7.0% Not Available [facility] [address] [facility] [address], [place], [address], 05/25/2024 17:12:51 05/20/20 24 05/20/2024 HEMOG LOBIN A1C estimated average glucose 87 Not Available [facility] [address] [facility] [address], [place], [address], 05/25/2024 17:12:51 05/20/20 24 05/20/2024 *C-PE PTIDE C-peptide 1.1 NG/mL 1.1-4. 4 NOTE: REFER ENCE RANGE APPLI ES TO FASTI NG SAMPL E ONLY. Not Available [facility] [address] [facility] [address], [place], [address], 05/25/2024 17:12:51 05/20/20 24 05/20/2024 COMPR EHENS TRES METAB OLIC PANEL sodium 140 mmol/ L 134-[address] [facility] [address] [facility] [address], [place], [address], 05/25/2024 17:12:52 05/20/20 24 05/20/2024 COMPR EHENS TRES METAB OLIC PANEL potassium 4.1 mmol/ L 3.5-5. 2 Not Available [facility] [address] [facility] [address], [place], [address], 05/25/2024 17:12:52 05/20/20 24 05/20/2024 COMPR EHENS TRES METAB OLIC PANEL chloride 104 mmol/ L 97-108 Not Available [facility] [address] [facility] [address], [place], [address], 05/25/2024 17:12:52 05/20/20 24 05/20/2024 COMPR EHENS TRES METAB OLIC PANEL carbon dioxide (co2) 25.0 mmol/ L 18.0-2 9.0 Not Available [facility] [address] [facility] [address], [place], [address], 05/25/2024 17:12:52 05/20/20 24 05/20/2024 COMPR EHENS TRES METAB OLIC PANEL glucose 81 mg/dL 65-99 Srinivas l Fasti ng: < 100 mg/dL Impai red Fasti n - 125 mg/dL Diagn ostic of Diabe dahlia: => 126 mg/dL Ameri can Diabe dahlia Assoc iatio n, [address] [facility] [address] [facility] [address], [place], [address], 05/25/2024 17:12:52 05/20/20 24 05/20/2024 COMPR EHENS TRES METAB OLIC PANEL urea nitrogen (BUN) 15 mg/dL 6-20 Not Available [facility] [address] [facility] [address], [place], [address], 05/25/2024 17:12:52 05/20/20 24 05/20/2024 COMPR EHENS TRES METAB OLIC PANEL creatinine 0.68 mg/dL 0.57-1 .00 Not Available [facility] [address] [facility] [address], [place], [address], 05/25/2024 17:12:52 05/20/2005/20/2024 COMPR EHENS TRES METAB OLIC PANEL eGFR 126 mL/mi nute/ 1.73_ m2 >59 MDRD Study Equat ion: The calcu lated GFR is NOT appli cable for pedia tric (< 18 years old) and > 70 year old patie nts and patie nts that are NOT of [place] . Not Available [facility] [address] [facility] [address], [place], [address], 05/25/2024 17:12:52 05/20/2005/20/2024 COMPR EHENS TRES METAB OLIC PANEL calcium 9.1 mg/dL 8.7-10 .2 Not Available [facility] [address] [facility] [address], [place], [address], 05/25/2024 17:12:52 05/20/20 24 05/20/2024 COMPR EHENS TRES METAB OLIC PANEL protein, total 7.1 gm/dL 6.4-8. 3 Not Available [facility] [address] [facility] [address], [place], [address], 05/25/2024 17:12:52 05/20/20 24 05/20/2024 COMPR EHENS TRES METAB OLIC PANEL albumin 4.7 gm/dL 3.5-5. 2 Not Available [facility] [address] [facility] [address], [place], [address], 05/25/2024 17:12:52 05/20/2005/20/2024 COMPR EHENS TRES METAB OLIC PANEL bilirubin, total 0.30 mg/dL 0.00-1 .20 Not Available [facility] [address] [facility] [address], [place], [address], 05/25/2024 17:12:52 05/20/20 24 05/20/2024 COMPR EHENS TRES METAB OLIC PANEL alkaline phosphatase (ALP) 107 U/L 39-117 Not Available [facility] [address] [facility] [address], [place], [address], 05/25/2024 17:12:52 05/20/20 24 05/20/2024 COMPR EHENS TRES METAB OLIC PANEL aspartate aminotransfe rase (AST) 15 U/L 0-32 Not Available [facility] [address] [facility] [address], [place], [address], 05/25/2024 17:12:52 05/20/20 24 05/20/2024 COMPR EHENS TRES METAB OLIC PANEL alanine aminotransfe rase (ALT) 15 U/L 0-33 Not Available [facility] [address] [facility] [address], [place], [address], 05/25/2024 17:12:52 05/20/20 24 05/20/2024 COMPR EHENS TRES METAB OLIC PANEL A/G ratio (calculated) 2.0 ratio 1.0-2. 7 Not Available [facility] [address] [facility] [address], [place], [address], 05/25/2024 17:12:52 05/20/20 24 05/20/2024 COMPR EHENS TRES METAB OLIC PANEL globulin (calculated) 2.4 gm/dL 1.5-3. 8 Not Available [facility] [address] [facility] [address], [place], [address], 05/25/2024 17:12:52 05/20/20 24 05/20/2024 COMPR EHENS TRES METAB OLIC PANEL BUN/creatini ne ratio (calculated) 22.1 ratio 8.0-20 .0 high Not Available [facility] [address] [facility] [address], [place], [address], 05/25/2024 17:12:52 05/20/20 24 05/20/2024 COMPR EHENS TRES METAB OLIC PANEL serum hemolysis index NORMAL index normal Not Available [facility] [address] [facility] [address], [place], [address], 05/25/2024 17:12:52 05/20/20 24 05/20/2024 LIPID PANEL W/ CALC. LDL cholesterol, total 149 mg/dL 100-19 9 Not Available [facility] [address] [facility] [address], [place], [address], 05/25/2024 17:12:52 05/20/20 24 05/20/2024 LIPID PANEL W/ CALC. LDL HDL cholesterol 46 mg/dL =>40 Not Available [facility] [address] [facility] [address], [place], [address], 05/25/2024 17:12:52 05/20/20 24 05/20/2024 LIPID PANEL W/ CALC. LDL LDL cholesterol (calculated) 93 mg/dL 0-[address] [facility] [address] [facility] [address], [place], [address], 05/25/2024 17:12:52 05/20/20 24 05/20/2024 LIPID PANEL W/ CALC. LDL triglyceride s 52 mg/dL 50-149 Not Available [facility] [address] [facility] [address], [place], [address], 05/25/2024 17:12:52 05/20/20 24 05/20/2024 LIPID PANEL W/ CALC. LDL chol/HDL ratio (calculated) 3.24 ratio 0.00-5 .00 Not Available [facility] [address] [facility] [address], [place], [address], 05/25/2024 17:12:52 05/20/20 24 05/20/2024 LIPID PANEL W/ CALC. LDL VLDL cholesterol (calculated) 10 mg/dL 5-[address] [facility] [address] [facility] [address], [place], [address], 05/25/2024 17:12:52 05/20/20 24 05/20/2024 THYRO ID-ST IM. HORMO NE (TSH) , HIGH- SENSI TIVE thyroid-stim . hormone (TSH), hs 2.47 uIU/m L 0.27-4 .20 Not Available [facility] [address] [facility] [address], [place], [address], 05/25/2024 17:12:53 05/20/20 24 05/20/2024 CBC WITH AUTO- DIFFE RENTI AL WBC 6.1 10*3/ uL 3.4-10 .8 Not Available [facility] [address] [facility] [address], [place], [address], 05/25/2024 17:12:53 05/20/20 24 05/20/2024 CBC WITH AUTO- DIFFE RENTI AL RBC 4.50 10*6/ uL 3.80-5 .30 Not Available [facility] [address] [facility] [address], [place], [address], 05/25/2024 17:12:53 05/20/20 24 05/20/2024 CBC WITH AUTO- DIFFE RENTI AL HGB 13.1 g/dL 11.1-1 5.9 Not Available [facility] [address] [facility] [address], [place], [address], 05/25/2024 17:12:53 05/20/20 24 05/20/2024 CBC WITH AUTO- DIFFE RENTI AL HCT 42.3 % 34.0-4 6.6 Not Available [facility] [address] [facility] [address], [place], [address], 05/25/2024 17:12:53 05/20/20 24 05/20/2024 CBC WITH AUTO- DIFFE RENTI AL MCV 94 fL 79-97 Not Available [facility] [address] [facility] [address], [place], [address], 05/25/2024 17:12:53 05/20/20 24 05/20/2024 CBC WITH AUTO- DIFFE RENTI AL MCH 29.1 pg 26.6-3 3.0 Not Available [facility] [address] [facility] [address] [facility] [address], [place], [address], 05/25/2024 17:12:53 05/20/20 24 05/20/2024 CBC WITH AUTO- DIFFE RENTI AL MCHC 31.0 g/dL 31.5-3 5.7 low Not Available [facility] [address], [place], [address], 05/25/2024 17:12:53 05/20/20 24 05/20/2024 CBC WITH AUTO- DIFFE RENTI AL RDW 12.7 % 11.5-1 4.5 Not Available [facility] [address], [place], [address], 05/25/2024 17:12:53 05/20/20 24 05/20/2024 CBC WITH AUTO- DIFFE RENTI AL platelets 230 10*3/ uL 150-40 0 Not Available [facility] [address], [place], [address], 05/25/2024 17:12:53 05/20/20 24 05/20/2024 CBC WITH AUTO- DIFFE RENTI AL MPV 11 fL 9-13 Not Available [facility] [address], [place], [address], 05/25/2024 17:12:53 05/20/20 24 05/20/2024 CBC WITH AUTO- DIFFE RENTI AL neutrophils 47.5 % 40.0-7 4.0 Not Available [facility] [address], [place], [address], 05/25/2024 17:12:53 05/20/20 24 05/20/2024 CBC WITH AUTO- DIFFE RENTI AL absolute neutrophils 2.88 10*3/ uL 1.40-7 .00 Not Available [facility] [address] [facility] [address], [place], [address], 05/25/2024 17:12:53 05/20/20 24 05/20/2024 CBC WITH AUTO- DIFFE RENTI AL lymphocytes 40.4 % 14.0-4 6.0 Not Available [facility] [address] [facility] [address], [place], [address], 05/25/2024 17:12:53 05/20/20 24 05/20/2024 CBC WITH AUTO- DIFFE RENTI AL absolute lymphocytes 2.45 10*3/ uL 0.70-3 .10 Not Available [facility] [address] [facility] [address], [place], [address], 05/25/2024 17:12:53 05/20/20 24 05/20/2024 CBC WITH AUTO- DIFFE RENTI AL monocytes 8.4 % 4.0-12 .0 Not Available [facility] [address] [facility] [address], [place], [address], 05/25/2024 17:12:53 05/20/20 24 05/20/2024 CBC WITH AUTO- DIFFE RENTI AL absolute monocytes 0.51 10*3/ uL 0.10-0 .90 Not Available [facility] [address] [facility] [address], [place], [address], 05/25/2024 17:12:53 05/20/20 24 05/20/2024 CBC WITH AUTO- DIFFE RENTI AL eosinophils 2.5 % 0.0-5. 0 Not Available [facility] [address] [facility] [address], [place], [address], 05/25/2024 17:12:53 05/20/20 24 05/20/2024 CBC WITH AUTO- DIFFE RENTI AL absolute eosinophils 0.15 10*3/ uL 0.00-0 .40 Not Available [facility] [address] [facility] [address], [place], [address], 05/25/2024 17:12:53 05/20/20 24 05/20/2024 CBC WITH AUTO- DIFFE RENTI AL basophils 1.0 % 0.0-3. 0 Not Available [facility] [address] [facility] [address], [place], [address], 05/25/2024 17:12:53 05/20/20 24 05/20/2024 CBC WITH AUTO- DIFFE RENTI AL absolute basophils 0.06 10*3/ uL 0.00-0 .20 Not Available [facility] [address] [facility] [address], [place], [address], 05/25/2024 17:12:53 05/20/20 24 05/20/2024 CBC WITH AUTO- DIFFE RENTI AL imm. gran. 0.2 % 0.0-2. 0 Not Available [facility] [address] [facility] [address], [place], [address], 05/25/2024 17:12:53 05/20/20 24 05/20/2024 CBC WITH AUTO- DIFFE RENTI AL abs. imm. gran. 0.01 10*3/ uL 0.00-0 .10 Not Available [facility] [address] [facility] [address], [place], [address], 05/25/2024 17:12:53 05/20/20 24 05/20/2024 GLUCO SE PAULA ANCE TEST (GTT) , 2-MICHEL R glucose tolerance test, fasting 70 mg/dL 65-99 Not Available [facility] [address] [facility] [address], [place], [address], 05/25/2024 17:12:53 05/20/20 24 05/20/2024 GLUCO SE PAULA ANCE TEST (GTT) , 2-MICHEL R glucose tolerance test, 1 hour 72 mg/dL 65-[address] [facility] [address] [facility] [address], [place], [address], 05/25/2024 17:12:53 05/20/20 24 05/20/2024 GLUCO SE PAULA ANCE TEST (GTT) , 2-MICHEL R glucose tolerance test, 2 hour 70 mg/dL 65-[address] [facility] [address] [facility] [address], [place], [address], 05/25/2024 17:12:53 05/20/20 24 05/20/2024 GLUCO SE PAULA ANCE TEST (GTT) , 2-MICHEL R serum hemolysis index NORMAL index normal Not Available [facility] [address] [facility] [address], [place], [address], 05/25/2024 17:12:53 05/20/20 24 05/20/2024 GLUCO SE PAULA ANCE TEST (GTT) , 2-MICHEL R glucose tolerance test, fasting 70 mg/dL 65-99 Not Available [facility] [address] [facility] [address], [place], [address], 05/25/2024 17:12:53 05/20/20 24 05/20/2024 GLUCO SE PAULA ANCE TEST (GTT) , 2-MICHEL R glucose tolerance test, 1 hour 72 mg/dL 65-[address] [facility] [address] [facility] [address], [place], [address], 05/25/2024 17:12:53 05/20/20 24 05/20/2024 GLUCO SE PAULA ANCE TEST (GTT) , 2-MICHEL R glucose tolerance test, 2 hour 70 mg/dL 65-[address] [facility] [address] [facility] [address], [place], [address], 05/25/2024 17:12:53 05/20/20 24 05/20/2024 GLUCO SE PAULA ANCE TEST (GTT) , 2-MICHEL R serum hemolysis index NORMAL index normal Not Available [facility] [address] [facility] [address], [place], [address], 05/25/2024 17:12:53 05/20/20 24 05/20/2024 GLUCO SE PAULA ANCE TEST (GTT) , 2-MICHEL R glucose tolerance test, fasting 70 mg/dL 65-99 Not Available [facility] [address] [facility] [address], [place], [address], 05/25/2024 17:12:53 05/20/20 24 05/20/2024 GLUCO SE PAULA ANCE TEST (GTT) , 2-MICHEL R glucose tolerance test, 1 hour 72 mg/dL 65-[address] [facility] [address] [facility] [address], [place], [address], 05/25/2024 17:12:53 05/20/20 24 05/20/2024 GLUCO SE PAULA ANCE TEST (GTT) , 2-MICHEL R glucose tolerance test, 2 hour 70 mg/dL 65-[address] [facility] [address] [facility] [address], [place], [address], 05/25/2024 17:12:53 05/20/20 24 05/20/2024 GLUCO SE PAULA ANCE TEST (GTT) , 2-MICHEL R serum hemolysis index NORMAL index normal Not Available [facility] [address] [facility] [address], [place], [address], 05/25/2024 17:12:53 05/20/20 24 05/22/2024 QUANT IFERO N - TB GOLD PLUS quantiferon incubation INCUBA TION PERFOR MED. normal Not Available [facility] [address] [facility] [address], [place], [address], 05/25/2024 17:12:54 05/20/20 24 05/22/2024 QUANT IFERO N - TB GOLD PLUS quantiferon criteria COMMEN T normal Quant iFERO N-TB Gold Plus is a quali tativ e indir ect test for M tuber culos is infec tion (incl uding disea se) and is inten ded for use in conju nctio n with risk asses sment , radio graph y, and other medic al and diagn ostic evalu ation s. The Quant iFERO N-TB Gold Plus resul t is deter mined by subtr actin g the Nil value from eithe r TB antig en (Ag) value . The Mitog en tube serve s as a contr ol for the test. Not Available [facility] [address] [facility] [address], [place], [address], 05/25/2024 17:12:54 05/20/20 24 05/25/2024 QUANT IFERO N - TB GOLD PLUS quantiferon TB1 Ag value 0.03 IU/mL normal Not Available [facility] [address] [facility] [address], [place], [address], 05/25/2024 17:12:54 05/20/20 24 05/25/2024 QUANT IFERO N - TB GOLD PLUS quantiferon TB2 Ag value 0.01 IU/mL normal Not Available [facility] [address] [facility] [address], [place], [address], 05/25/2024 17:12:54 05/20/20 24 05/25/2024 QUANT IFERO N - TB GOLD PLUS quantiferon nil value 0.02 IU/mL normal Not Available [facility] [address] [facility] [address], [place], [address], 05/25/2024 17:12:54 05/20/20 24 05/25/2024 QUANT IFERO N - TB GOLD PLUS quantiferon mitogen value >10.00 IU/mL normal Not Available [facility] [address] [facility] [address], [place], [address], 05/25/2024 17:12:54 05/20/20 24 05/25/2024 QUANT IFERO N - TB GOLD PLUS quantiferon- TB gold plus NEGATI VE negati ve normal No respo nse to M tuber culos is antig ens detec andrzej. Infec tion with M tuber culos is is unlik wenceslao, but high risk indiv idual s shoul d be consi dered for addit ional testi ng (ATS/ IDSA/ CDC Clini estefani Pract ice Guide lines , 2017) . The refer ence range is an Antig en minus Nil resul t of <0.35 IU/mL . Chemi lumin escen ce immun oassa y metho dolog y Not Available [facility] [address], [place], [address], 05/25/2024 17:12:54 01/21/20 25 01/21/2025 CBC/D IFF AMBIG UOUS DEFAU LT WBC 10.6 x10e3 /uL 3.4-10 .8 normal Not Available [facility] ([facility]) [address] [place], [address], 01/21/2025 10:37:21 01/21/20 25 01/21/2025 CBC/D IFF AMBIG UOUS DEFAU LT RBC 3.98 x10e6 /uL 3.77-5 .28 normal Not Available [facility] ([facility]) [address] [place], [address], 01/21/2025 10:37:21 01/21/20 25 01/21/2025 CBC/D IFF AMBIG UOUS DEFAU LT hemoglobin 12.2 g/dL 11.1-1 5.9 normal Not Available [facility] ([facility]) [address] [place], [address], 01/21/2025 10:37:21 01/21/20 25 01/21/2025 CBC/D IFF AMBIG UOUS DEFAU LT hematocrit 36.8 % 34.0-4 6.6 normal Not Available [facility] ([facility]) [address] [place], [address], 01/21/2025 10:37:21 01/21/20 25 01/21/2025 CBC/D IFF AMBIG UOUS DEFAU LT MCV 93 fL 79-97 normal Not Available [facility] ([facility]) [address] [facility], [place], [address], 01/21/2025 10:37:21 01/21/20 25 01/21/2025 CBC/D IFF AMBIG UOUS DEFAU LT MCH 30.7 pg 26.6-3 3.0 normal Not Available [facility] ([facility]) [address] [place], [address], 01/21/2025 10:37:21 01/21/20 25 01/21/2025 CBC/D IFF AMBIG UOUS DEFAU LT MCHC 33.2 g/dL 31.5-3 5.7 normal Not Available [facility] ([facility]) [address] [facility], [place], [address], 01/21/2025 10:37:21 01/21/20 25 01/21/2025 CBC/D IFF AMBIG UOUS DEFAU LT RDW 11.6 % 11.7-1 5.4 below low normal Not Available [facility] ([facility]) [address] [place], [address], 01/21/2025 10:37:21 01/21/20 25 01/21/2025 CBC/D IFF AMBIG UOUS DEFAU LT platelets 215 x10e3 /uL 150-45 0 normal Not Available [facility] ([facility]) [address] [place], [address], 01/21/2025 10:37:21 01/21/20 25 01/21/2025 CBC/D IFF AMBIG UOUS DEFAU LT neutrophils 72 % not estab. normal Not Available [facility] ([facility]) [address] [place], [address], 01/21/2025 10:37:21 01/21/20 25 01/21/2025 CBC/D IFF AMBIG UOUS DEFAU LT lymphs 19 % not estab. normal Not Available [facility] ([facility]) [address] [facility], [place], [address], 01/21/2025 10:37:21 01/21/20 25 01/21/2025 CBC/D IFF AMBIG UOUS DEFAU LT monocytes 6 % not estab. normal Not Available [facility] ([facility]) [address] [facility], [place], [address], 01/21/2025 10:37:21 01/21/20 25 01/21/2025 CBC/D IFF AMBIG UOUS DEFAU LT eos 2 % not estab. normal Not Available [facility] ([facility]) [address] [facility], [place], [address], 01/21/2025 10:37:21 01/21/20 25 01/21/2025 CBC/D IFF AMBIG UOUS DEFAU LT basos 0 % not estab. normal Not Available [facility] ([facility]) [address] [facility], [place], [address], 01/21/2025 10:37:21 01/21/20 25 01/21/2025 CBC/D IFF AMBIG UOUS DEFAU LT immature cells SPARES SCHEDULER Not Available [facility] ([facility]) [address] [place], [address], 01/21/2025 10:37:21 01/21/20 25 01/21/2025 CBC/D IFF AMBIG UOUS DEFAU LT neutrophils (absolute) 7.6 x10e3 /uL 1.4-7. 0 above high normal Not Available [facility] ([facility]) [address] [facility], [place], [address], 01/21/2025 10:37:21 01/21/20 25 01/21/2025 CBC/D IFF AMBIG UOUS DEFAU LT lymphs (absolute) 2.0 x10e3 /uL 0.7-3. 1 normal Not Available [facility] ([facility]) [address] [facility], [place], [address], 01/21/2025 10:37:21 01/21/20 25 01/21/2025 CBC/D IFF AMBIG UOUS DEFAU LT monocytes(ab solute) 0.6 x10e3 /uL 0.1-0. 9 normal Not Available [facility] ([facility]) [address] [facility], [place], [address], 01/21/2025 10:37:21 01/21/20 25 01/21/2025 CBC/D IFF AMBIG UOUS DEFAU LT eos (absolute) 0.2 x10e3 /uL 0.0-0. 4 normal Not Available [facility] ([facility]) [address] [facility], [place], [address], 01/21/2025 10:37:21 01/21/20 25 01/21/2025 CBC/D IFF AMBIG UOUS DEFAU LT baso (absolute) 0.0 x10e3 /uL 0.0-0. 2 normal Not Available [facility] ([facility]) [address] [facility], [place], [address], 01/21/2025 10:37:21 01/21/20 25 01/21/2025 CBC/D IFF AMBIG UOUS DEFAU LT immature granulocytes 1 % not estab. Not Available [facility] ([facility]) [address] [place], [address], 01/21/2025 10:37:21 01/21/20 25 01/21/2025 CBC/D IFF AMBIG UOUS DEFAU LT immature grans (abs) 0.1 x10e3 /uL 0.0-0. 1 Not Available [facility] ([facility]) [address] [place], [address], 01/21/2025 10:37:21 01/21/20 25 01/21/2025 CBC/D IFF YOSSI JAIMES LT NRBC SPARES SCHEDULER Not Available [facility] ([facility]) [address] [facility], [place], [address], 01/21/2025 10:37:21 01/21/20 25 01/21/2025 CBC/D IFF YOSSI RICCI DEFAU LT hematology comments: SPARES SCHEDULER A hand- writt en panel /prof ile was recei vasquez from your offic e. In accor dance with the [facility] Yossi ricci Test Code Polic y dated April 2003, we have assig lena CBC with Diffe jeronimo al/Pl jim t, Test Code #[address]. If this is not the testi ng you wishe d to recei ve on this speci men, pleas e conta ct the [facility] Clien t Inqui ry/ Techn ical Servi jessica Depar tment to bela fy the test order . We appre ciate your busin ess. Not Available [facility] ([facility]) [address] [facility], [place], [address], 01/21/2025 10:37:21 01/21/20 25 01/21/2025 COMP. METAB OLIC PANEL (14) glucose 110 mg/dL 70-99 above high normal Not Available [facility] ([facility]) [address] [facility], [place], [address], 01/21/2025 10:37:22 01/21/20 25 01/21/2025 COMP. METAB OLIC PANEL (14) BUN 9 mg/dL 6-20 normal Not Available [facility] ([facility]) [address] [place], [address], 01/21/2025 10:37:22 01/21/20 25 01/21/2025 COMP. METAB OLIC PANEL (14) creatinine 0.49 mg/dL 0.57-1 .00 below low normal Not Available [facility] ([facility]) [address] [facility] [place], [address], 01/21/2025 10:37:22 01/21/20 25 01/21/2025 COMP. METAB OLIC PANEL (14) eGFR 136 mL/mi n/1.7 3 >59 normal Not Available [facility] ([facility]) [address] [facility] [place], [address], 01/21/2025 10:37:22 01/21/20 25 01/21/2025 COMP. METAB OLIC PANEL (14) BUN/creatini ne ratio 18 9-23 normal Not Available [facility] ([facility]) [address] [facility] [place], [address], 01/21/2025 10:37:22 01/21/20 25 01/21/2025 COMP. METAB OLIC PANEL (14) sodium 137 mmol/ L 134-14 4 normal Not Available [facility] ([facility]) [address] [facility] [place], [address], 01/21/2025 10:37:22 01/21/20 25 01/21/2025 COMP. METAB OLIC PANEL (14) potassium 3.7 mmol/ L 3.5-5. 2 normal Not Available [facility] ([facility]) [address] [facility] [place], [address], 01/21/2025 10:37:22 01/21/20 25 01/21/2025 COMP. METAB OLIC PANEL (14) chloride 101 mmol/ L 96-106 normal Not Available [facility] ([facility]) [address] [facility] [place], [address], 01/21/2025 10:37:22 01/21/20 25 01/21/2025 COMP. METAB OLIC PANEL (14) carbon dioxide, total 20 mmol/ L 20-29 normal Not Available [facility] ([facility]) [address] [place], [address], 01/21/2025 10:37:22 01/21/20 25 01/21/2025 COMP. METAB OLIC PANEL (14) calcium 8.2 mg/dL 8.7-10 .2 below low normal Not Available [facility] ([facility]) [address], [place], [address], 01/21/2025 10:37:22 01/21/20 25 01/21/2025 COMP. METAB OLIC PANEL (14) protein, total 6.1 g/dL 6.0-8. 5 normal Not Available [facility] ([facility]) [address] [facility] [place], [address], 01/21/2025 10:37:22 01/21/20 25 01/21/2025 COMP. METAB OLIC PANEL (14) albumin 3.7 g/dL 4.0-5. 0 below low normal Not Available [facility] ([facility]) [address] [facility], [place], [address], 01/21/2025 10:37:22 01/21/20 25 01/21/2025 COMP. METAB OLIC PANEL (14) globulin, total 2.4 g/dL 1.5-4. 5 Not Available [facility] ([facility]) [address] [facility] [place], [address], 01/21/2025 10:37:22 01/21/20 25 01/21/2025 COMP. METAB OLIC PANEL (14) bilirubin, total <0.2 mg/dL 0.0-1. 2 Not Available [facility] ([facility]) [address] [facility] [place], [address], 01/21/2025 10:37:22 01/21/20 25 01/21/2025 COMP. METAB OLIC PANEL (14) alkaline phosphatase 86 IU/L 44-121 normal Not Available [facility] ([facility]) [address] [facility] [place], [address], 01/21/2025 10:37:22 01/21/20 25 01/21/2025 COMP. METAB OLIC PANEL (14) AST (SGOT) 14 IU/L 0-40 normal Not Available [facility] ([facility]) [address] [place], [address], 01/21/2025 10:37:22 01/21/20 25 01/21/2025 COMP. METAB OLIC PANEL (14) ALT (SGPT) 11 IU/L 0-32 normal Not Available [facility] ([facility]) [address] [place], [address], 01/21/2025 10:37:22 01/21/20 25 01/21/2025 LIPID PANEL cholesterol, total 236 mg/dL 100-19 9 above high normal Not Available [facility] ([facility]) [address] [place], [address], 01/21/2025 10:37:23 01/21/20 25 01/21/2025 LIPID PANEL triglyceride s 159 mg/dL 0-149 above high normal Not Available [facility] ([facility]) [address] [place], [address], 01/21/2025 10:37:23 01/21/20 25 01/21/2025 LIPID PANEL HDL cholesterol 69 mg/dL >39 normal Not Available [facility] ([facility]) [address] [place], [address], 01/21/2025 10:37:23 01/21/20 25 01/21/2025 LIPID PANEL VLDL cholesterol estefani 28 mg/dL 5-40 Not Available [facility] ([facility]) [address] [place], [address], 01/21/2025 10:37:23 01/21/20 25 01/21/2025 LIPID PANEL LDL chol calc ([facility]) 139 mg/dL 0-99 above high normal Not Available [facility] ([facility]) [address] [place], [address], 01/21/2025 10:37:23 01/21/20 25 01/21/2025 LIPID PANEL LDL calc comment: SPARES SCHEDULER Not Available [facility] ([facility]) [address] [facility], [place], [address], 01/21/2025 10:37:23 01/21/20 25 01/21/2025 HEMOG LOBIN A1C hemoglobin A1C 4.7 % 4.8-5. 6 below low normal Predi abete s: 5.7 - 6.4 Diabe dahlia: >6.4 Glyce nga contr ol for adult s with diabe dahlia: <7.0 Not Available [facility] ([facility]) [address] [place], [address], 01/21/2025 10:37:24 01/21/20 25 01/21/2025 TSH TSH 1.000 uIU/m L 0.450- 4.500 normal Not Available [facility] ([facility]) [address] [place], [address], 01/21/2025 10:37:25 01/21/20 25 01/21/2025 C-PEP TIDE, SERUM C-peptide, serum 12.2 NG/mL 1.1-4. 4 above high normal C-Pep tide refer ence inter gemma is for fasti ng patie nts. Not Available [facility] ([facility]) [address] [place], [address], 01/21/2025 10:37:25 01/21/20 25 01/20/2025 YOSSI ABBRE V CMP14 DEFAU LT yossi scottrev CMP14 default Commen t A hand- writt en panel /prof soliz was recei vasquez from your offic e. In accor dance with the [facility] Yossi uous Test Code Polic y dated April 2003, we have compl eted your order by using the close st curre ntly or forme rly recog nized AMA panel . We have chai paredes Compr ehens tres Metab olic Panel (14), Test Code #32[address]. If this is not the testi ng you wishe d to recei ve on this speci men, pleas e conta ct the [facility] Clien t Inqui ry/Te chnic al Servi jessica Depar tment to bela fy the test order . We appre ciate your busin ess. Not Available [facility] ([facility]) [address] [facility], [place], [address], 01/21/2025 10:37:26 01/21/20 25 01/20/2025 YOSSI CARTER V LP DEFAU LT yossi carterv LP default Commen t A hand- writt en panel /prof ile was recei vasquez from your offic e. In accor dance with the [facility] Alizeig uous Test Code Polic y dated April 2003, we have compl eted your order by using the close st curre ntly or forme rly recog nized AMA panel . We have chai paredes Lipid Panel , Test Code #30[address]. If this is not the testi ng you wishe d to recei ve on this speci men, pleas e conta ct the [facility] Clien t Inqui ry/Te chnic al Servi jessica Depar tment to bela fy the test order . We appre ciate your busin ess. Not Available [facility] ([facility]) [address] [facility], [place], [address], 01/21/2025 10:37:27 12/16/19 25 12/16/2024 elect rocar diogr am No observ ation record ed. [email or web address] [facility], [facility] [address], [place], [address], 12/16/2024 22:34:57 12/16/19 25 12/16/2024 elect rocar diogr am No observ ation record ed. [email or web address] [facility], [facility] [address], [place], [address], 12/16/2024 22:34:51 12/16/19 25 elect hailey timpooja am No observ ation record ed. [email or web address] [facility] [address], [place], [address], 12/16/2024 22:39:22 Result Notes None recorded. Problems Name Problem SNOMED Code Status Onset Date Resolution Date Notes Provider Name and Address Organization Details Recorded Time Mixed hyperlipidemia 332953448 Active 2024 Molly Souza MD [address], [place], [address], [facility] 5 10:42:49 Family history of cystic fibrosis 330984654 Active 2023 Molly Souza MD [address], [place], [address], [facility] 4 15:06:44 Family history of diabetes mellitus 769100474 Active 2023 Molly Souza MD [address], [place], [address], [facility] 4 15:06:45 Body mass index less than 20 778302298 Active 2023 Molly Souza MD [address], [place], [address], [facility] 4 15:12:36 Problem Notes None recorded. Medical Equipment None Reported. Allergies No known drug allergies Medications Not known to be on any medication Vitals Date Recorded Heart rate Respiratory rate Body temperature Body height Body mass index (BMI) Body weight Systolic blood pressure Diastolic blood pressure Provider Name and Address Organization Details Last Updated DateTime 4 75 /min 16 /min 98.9 [degF] 162.56 cm 18.9 kg/m2 82344.1 6 g 105 mm[Hg] 68 mm[Hg] Kavya Blood [facility] 4 14:49:29 Date Recorded Body weight Body mass index (BMI) Body height Body temperature Respiratory rate Heart rate Systolic blood pressure Diastolic blood pressure Provider Name and Address Organization Details Last Updated DateTime 5 96572.1 9 g 22.7 kg/m2 162.56 cm 98 [degF] 16 /min 83 /min 109 mm[Hg] 66 mm[Hg] Kavya Blood [facility] 5 12:52:22 Social History None recorded. Functional Status None recorded. Mental Status None recorded. Family History Relationship Description Onset Age of this Age Resolved Age Notes LastModified by Organization Details LastModified Time Father Diabetes mellitus [email or web address] Not available 2023 14:59:40 Sister Cystic fibrosis [email or web address] Not available 2023 14:59:51 Medical History No medical history recorded. Gynecological HistoryNo gynecological history recorded. Obstetrics History GPAL:G 0 P 0 0 0 0 Immunizations Vaccine Type Date Status Note Provider Nam e and Address Organization Details Recorded Time HPV, quadrivalent 4 completed Molly Souza MD [address], [place], [address], [facility] 12/10/2023 15:02:45 Td(adult) unspecified formulation 3 completed Molly Souza MD [address], [place], [address], [facility] 12/10/2023 15:03:17 MMR 6 completed Molly Souza MD [address], [place], [address], [facility] 12/10/2023 15:03:45 pneumococcal, unspecified formulation 6 completed Molly Souza MD [address], [place], [address], [facility] 12/10/2023 15:04:19 Hep A, pediatric, unspecified formulation 6 completed Molly Souza MD [address], [place], [address], [facility] 12/10/2023 15:04:49 Hep B, unspecified formulation 3 completed Molly Souza MD [address], [place], [address], [facility] 12/10/2023 15:05:05 Td(adult) unspecified formulation 4 completed Molly Souza MD [address], [place], [address], [facility] 12/16/2024 13:15:14 Past Encounters Encounter ID Performer Location Encounter Start Date Encounter Closed Date Diagnosis/Indication Diagnosis SNOMED-CT Code Diagnosis ICD10 Code Diagnosis Note [id number] [facility] [address] [place] [address] 12/10/2023 14:08:18 12/10/2023 15:22:04 Adult health examination 545914760 Z00.00 per pt had optometry 05/2023 Body mass index less than 20 933126580 Z68.1 Family his tory of diabetes mellitus 626343635 Z83.3 father Family his tory of cystic fibrosis 490936107 Z83.49 sisterper pt she was tested for CF and was -ve Screening for malignant neoplasm of cervix 174039179 Z12.4 per pt had PAP 06/2023 Active or passive immunization 254157314 Z23 [id number] Molly Souza MD [facility], [facility] [address] [place] [address] 12/16/2024 12:31:26 12/16/2024 13:43:35 Adult health examination 162694724 Z00.00 per pt had optometry 05/2023 Body mass index less than 20 731794249 Z68.1 Family his tory of diabetes mellitus 136204150 Z83.3 father Family his tory of cystic fibrosis 198270774 Z83.49 sisterper pt she was tested for CF and was -ve Screening for malignant neoplasm of cervix 277560007 Z12.4 per pt had PAP 06/2023 Active or passive immunization 132187430 Z23 up to date Gestation period, 22 weeks 38659033 Z3A.22 F/O with OB Dizziness 693859494 R42 NL neuro ex Health Concerns Section Related Observation LastModified by Organization Detai ls LastModified Time None Recorded Concern Status LastModified by Organization Details LastModified Time None Recorded Advance Directives Directive None Recorded Payers Encounter Date Sequence Insurance Name Policy Number Policy Jones Covered Member ID Jones Member ID Guarantor Name 12/10/2023 1 [facility] Jo Dejesus [id number] Jo Dejesus 12/16/2024 1 [facility] Jo Dejesus [id number] Jo Dejesus Notes Date Note Type Note Provider Name and Address Organization Details Recorded Time 12/10/2023 text/html Hypertension F/UReported bypatient.Medications: taking medications as directed; no side effects from medication Lifestyle:regular exercise; limiting/avoiding salt; compliant with low salt diet Associated Symptoms:no dizziness; no lightheadedness; no chest pain; no shortness of breath; no palpitations; no edema; no calf pain with exertion; no headacheMedicare Annual Wellness VisitReported bypatient.Diet and Nutrition:healthy diet Fracture Risk:no history of fractures; no recent explained fracture; no sudden unexplained fractures; no previous musculoskeletal injuries Physical Activity:exercises on a regular basis; recent increase in physical activity; good physical condition; discussed exercise habits Depression Risk:never feels sad, empty, or tearful; no loss of interest in activities; no significant changes in weight; no sleep disturbances or insomnia; no agitation; no loss of energy; no feelings of worthlessness or guilt; no thoughts of suicide; no history of depression; no history of mood disorders Orientation:no disorientation to time; no disorientation to date; no disorientation to place Concentration and Memory:no decreased concentrating ability; no memory lapses or loss; does not forget words Speech/Motor difficulties:no speech difficulties; no difficulty expressing formulated concepts; no difficulty with fine manipulative tasks; no difficulty writing/copying; no slowed reaction time; does not knock things over when trying to pick them up Hearing:no loss of hearing Vision:no vision problems Falls Risk Assessment:no frequent falls while walking; no fall in the past year; no dizziness/vertigo Home Safety:use of seatbelts; no vision or hearing loss while driving Molly Souza MD [address], [place], [address], [facility] 12/10/2023 15:14:40 12/16/2024 text/html Hypertension F/UReported bypatient.Medications: taking medications as directed; no side effects from medication Lifestyle:regular exercise; limiting/avoiding salt; compliant with low salt diet Associated Symptoms:no lightheadedness; no chest pain; no shortness of breath; no palpitations; no edema; no calf pain with exertion; [facility] Annual Wellness VisitReported bypatient.Diet and Nutrition:healthy diet Fracture Risk:no history of fractures; no recent explained fracture; no sudden unexplained fractures; no previous musculoskeletal injuries Physical Activity:exercises on a regular basis (walking); recent increase in physical activity; good physical condition; discussed exercise habits Depression Risk:never feels sad, empty, or tearful; no loss of interest in activities; no significant changes in weight; no sleep disturbances or insomnia; no agitation; no loss of energy; no feelings of worthlessness or guilt; no thoughts of suicide; no history of depression; no history of mood disorders Orientation:no disorientation to time; no disorientation to date; no disorientation to place Concentration and Memory:no decreased concentrating ability; no memory lapses or loss; does not forget words Speech/Motor difficulties:no speech difficulties; no difficulty expressing formulated concepts; no difficulty with fine manipulative tasks; no difficulty writing/copying; no slowed reaction time; does not knock things over when trying to pick them up Hearing:no loss of hearing Vision:no vision problems Falls Risk Assessment:no frequent falls while walking; no fall in the past year; no fall since last visit; no dizziness/vertigo Home Safety:use of seatbelts; no vision or hearing loss while driving Molly Souza MD [address], [place], [address], [facility] 12/16/2024 13:24:28 OBGyn Episode No OBEpisode recorded.
--- OUTSIDE RECORDS SUMMARY | 2025-03-28 12:38 | XMS_ITS | Clinical Summary ---
Author Organization [facility] Address [address] [place] [address] Care Team Providers Care Roll Weigher Name Role Phone Unknown, Provider Primary Care Provider UnavailAlberto Crawley MD Unavailable [phone] Source Comments [facility],non-owned Affiliates and Associated Physician Practices is amultiple site organization consisting of ambulatory clinics and hospital sitesin [place], [place], [place] and [place]. This disclosure is being madepursuant to the Care Everywhere program and may not contain all information available regarding this patient. Last updated 18.[facility] Allergies No known active allergies Medications * Be aware that medications may not be up to date on this document. Alwaysverify current medications with the patient. fluticasone propionate (FLUTICASONE PROPIONATE) 50 MCG/ACT nasal spray Hidalgo 1 Hidalgo into each nostril once daily. Active cetirizine [...] - 02/01/2025 11:59 PM CDT Hospital Encounter [facility] [address] [place] [address] Venancio Colby MD Discharge Disposition: Home or Self Care 01/04/2025 7:30 AM CDT - 01/04/2025 11:59 PM CDT Hospital Encounter [facility] [address] [place] [address] Ronn De Guzman MD Discharge Disposition: Home or Self Care from Last 3 Months Family History Medical History Relation Name Comments CVA<65(female) Paternal Aunt Arrhythmia Neg Hx CVA<55(male) Neg Hx Cardiomyopathy Neg Hx Congenital Heart defect Neg Hx Heart Surgery Neg Hx Long QT Syndrome Neg Hx NC<55(male) Neg Hx NC<65(female) Neg Hx Marfan Syndrome Neg Hx Pacemaker [...] 9:09 AM CDT Height 149.9 cm (4' 11.02) 05/26/2013 9:09 AM C DT Body Mass [...] 01/14/2025 OB-TDAP CURRENT 01/21/2025 OB-RHOGAM INJECTION 01/28/2025 OB-GROUP B STREP SCREEN 03/18/2025 INFLUENZA VACCINE (Season Ended) 2025 ZOSTER VACCINE [...] ultrasound Primigravida, antepartum 24 weeks gestation of from Last 3 Months Results * SONOGRAM - COMPLETE (02/01/2025 8:15 AM CDT) Only the most recent of2 resultswithin the time period is included. Linked [...] 2 lb 11 oz EFW by Hadlock ([id number]) appropriate Growth Overview = Exam date GA [...] up as clinically indicated Coding ====== Procedures 48415: US Preg Uterus Follow Up [employer] PACS Anatomical Region Laterality Modality Other 02/01/2025 8:15 AM CDT Lior Turcios MD [facility] ORDERABLES Edited Result - Final from Last 3 Months Insurance [employer] MEDICAID [place] Care Teams Roll Weigher Relationship Specialty Start Date End Date Unknown, Provider PCP - General 12/09/24 Alberto Tomlinson MD [address] [place] [address] Family Medicine 12/09/24
--- OUTSIDE RECORDS SUMMARY | 2025-03-28 12:38 | XMS_ITS | Clinical Summary ---
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 Gender Identity Not on file Sexual Orientation Not on file Last Filed Vital Signs Vital Sign Reading Time Taken Comments Blood Pressure 128/69 08/24/2024 11:23 AM VIDEOGAME TESTER Pulse 98 08/24/2024 10:36 AM VIDEOGAME TESTER Temperature 36.9 C (98.5 F) 08/24/2024 10:36 AM VIDEOGAME TESTER Respiratory Rate 20 08/24/2024 10:36 AM VIDEOGAME TESTER Oxygen Saturation 100% 08/24/2024 10:36 AM VIDEOGAME TESTER Inhaled Oxygen Concentration - - Weight 54.4 kg (120 lb) 08/24/2024 11:14 AM VIDEOGAME TESTER perpatient Height 161.3 cm (5' 3.5) 08/24/2024 11:14 AM CS T Body Mass Index 20.92 08/24/2024 11:14 AM VIDEOGAME TESTER Plan of Treatment Upcoming Encounters Date Type Department Care Team (Late st Contact Info) Description 04/22/2025 Hospital Encounter [facility] OB Triage [address] [place] [address] Sarah Rogers MD [address] [place] [address] Health Maintenance Due Date Last [...] or ) (No Doses Required) Completed Insurance [employer] Advance Directives For more information, please contact: [phone] * Full Code (Latest Code Status on File) Date Activated Date Inactivated Comments 08/24/2024 11:08 AM 08/24/2024 3:46 PM
== END 2025-03-28 12:51 | disposition home or self-care (01) ==
LOC: ANHOBOP 11:04 → ANHOBPP 11:05
PROVIDERS: PCP Internal Medicine; Visit Provider Obstetrics & Gynecology
DX: O13.9 Gestational [pregnancy-induced] hypertension without significant proteinuria, unspecified trimester (principal); R82.90 Unspecified abnormal findings in urine; Z3A.00 Weeks of gestation of pregnancy not specified
CPT/HCPCS: 36415; 59025; 80053; 81001; 82570; 84156; 84550; 85025; 87086; 99199

== ENCOUNTER 2025-04-15 10:30 | Outpatient (RCR) | payer SELFPAY ==
--- NOTE | 2025-03-02 12:02 | OPREHPOC ---
Outpatient Therapy Plan of Care This is a Multidisciplinary Plan of Care that may contain components documented by all disciplines (PT, OT, and ST.) PT Problem 1 PT Problem #1 Knowledge Deficit PT Goal 1 Goal / Goal Update 1. Patient will perform independent HEP Target Visit 3 PT Problem 2 PT Problem #2 Pain PT Goal 1 Goal / Goal Update 1. No pain with palpation of pubic symphysis 2. Pain with rolling in bed and car transfers no higher than 3/10 Target Visit 10 PT Problem 3 PT Problem #3 Impaired Functional ADLs PT Goal 1 Goal / Goal Update 1. Patient will not be limited with any transitional movement Target Visit 10 PT Problem 4 PT Problem #4 Impaired Strength PT Goal 1 Goal / Goal Update 1. Bilateral hip abduction to 4+/5 and pain free to support patient with mobility Target Visit 10
--- NOTE | 2025-03-02 12:02 | PTOPEVAL1 ---
Assessment and note entered by Rayne Richards DPT Evaluation Information Assessment Status Evaluation Diagnosis o99.891, m79.18, o26.893, m25.559 ICD-10 Condition Codes (PT) Pain in low back M54.50,Pelvic and perineal pain R10.2 Subjective Information Pt is currently 32 weeks and reports feeling that her pubic bone is bruised. Reports a lot of difficulty with rolling over and getting out of bed in the morning. Sometimes has pain getting out of a chair and with car transfers. Also reports some back pain and round ligament pain. Also had pelvic pain with intercourse recently. Highest pain recently 6-7/10 and lowest 0/10. 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 This is patient's first , no other issues. Patient goal: improve pain, get out of bed without it hurting Returns to Dr. Sanchez 03/10/25. Reported Pain Level Pain Score 0: Self Report Assessment PT Clinical Summary The patient is presenting to skilled therapy at 32 weeks with low back pain and pelvic/ pubic pain. She presents with decreased hip strength and pain with palpation of pubic symphysis. These impairments are contributing to her pain and difficulty with transitional movements like getting out of bed or car transfers . She will highly benefit from therapy to improve strength and reduce pain as her progresses in order to function at home. Plan of Care Interventions Gait Training,Hot Pack/Cold Pack,Manual Therapy, Neuro Re-education,Patient/Caregiver Education, Therapeutic Activities,Therapeutic Exercise PT Services Indicated Yes Treatment Frequency and 1-2 times a week for 10 visits Duration These treatments will address the objective and functional deficits as defined above. The patient will be advanced safely and appropriately in order for the patient to progress towards his/her prior level of function. Additional exercises will be introduced and as well as a comprehensive home exercise program upon discharge, if needed, ?to ensure carryover of functional gains achieved in the clinic. This treatment plan has been reviewed and agreement upon by the patient.
--- NOTE | 2025-04-15 11:13 | PTOPPROGNS ---
Assessment and note entered by Rayne Richards DPT Evaluation Information Assessment Status Progress Diagnosis o99.891, m79.18, o26.893, m25.559 ICD-10 Condition Codes (PT) Pain in low back M54.50,Pelvic and perineal pain R10.2 Subjective Information Highest pain recently 4-5/10 and lowest 0/10. Notes definite improvement with car transfers. Still having some pain with getting out of bed and taking a first step after standing up. Pt is 39 weeks . Assessment PT Clinical Summary The patient has made good progress in therapy and reports decreased pain overall. Improved ability to perform car transfers but still has some difficulty getting out of bed and with initial step after standing. She demonstrates improved hip strength and less pain with palpation this date. As the patient is currently 39 weeks , plan on holding therapy at this time but patient may call if 1-2 more visits are needed prior to delivery. She has been educated in HEP as well as possible delivery positions to help manage pain. Plan of Care Interventions Gait Training,Hot Pack/Cold Pack,Manual Therapy, Neuro Re-education,Patient/Caregiver Education, Therapeutic Activities,Therapeutic Exercise PT Services Indicated Yes Treatment Frequency and patient on hold as due date is in 1 week, will see Duration 1-2 more visits as needed prior to delivery These treatments will address the objective and functional deficits as defined above. The patient will be advanced safely and appropriately in order for the patient to progress towards his/her prior level of function. Additional exercises will be introduced and as well as a comprehensive home exercise program upon discharge, if needed, ?to ensure carryover of functional gains achieved in the clinic. This treatment plan has been reviewed and agreement upon by the patient.
--- NOTE | 2025-04-15 11:13 | OPREHPOC ---
Outpatient Therapy Plan of Care This is a Multidisciplinary Plan of Care that may contain components documented by all disciplines (PT, OT, and ST.) PT Problem 1 PT Problem #1 Knowledge Deficit PT Goal 1 Goal / Goal Update 1. Patient will perform independent HEP Target Visit 3 Progress Met PT Problem 2 PT Problem #2 Pain PT Goal 1 Goal / Goal Update 1. No pain with palpation of pubic symphysis 2. Pain with rolling in bed and car transfers no higher than 3/10 update 04/15/25 1. painful but no wincing 2. 5/10 highest Target Visit 10 Progress Partially Met PT Problem 3 PT Problem #3 Impaired Functional ADLs PT Goal 1 Goal / Goal Update 1. Patient will not be limited with any transitional movement Target Visit 10 Progress Met PT Problem 4 PT Problem #4 Impaired Strength PT Goal 1 Goal / Goal Update 1. Bilateral hip abduction to 4+/5 and pain free to support patient with mobility update 04/15/25 1. improved to 3+/5 Target Visit 10 Progress Partially Met
--- NOTE | 2025-05-04 10:01 | PTOPDC ---
Assessment and note entered by Rayne Rcihards DPT Evaluation Information Assessment Status Discharge - Pt Not Present Diagnosis o99.891, m79.18, o26.893, m25.559 ICD-10 Condition Codes (PT) Pain in low back M54.50,Pelvic and perineal pain R10.2 Subjective Information - Assessment PT Clinical Summary Patient has not needed to return for visits and likely has delivered her baby. This case will be discharged. Plan of Care PT Services Indicated No
== END 2025-05-04 12:15 | disposition home or self-care (01) ==
LOC: ANHPT 10:30
PROVIDERS: PCP Internal Medicine; Visit Provider Obstetrics & Gynecology
DX: O99.891 Other specified diseases and conditions complicating pregnancy (principal); M79.18 Myalgia, other site; O26.893 Other specified pregnancy related conditions, third trimester; M25.559 Pain in unspecified hip
CPT/HCPCS: 97110; 97140; 97161; 97530

== ENCOUNTER 2025-04-26 17:03 | Inpatient (IN) | payer OTHER, SELFPAY ==
[2025-04-26] VITALS (8 sets, daily range): BP systolic 108–130; BP diastolic 54–84; PULSE 76–97; TEMP 36.6; O2SAT 96–97; BMI 28.5
--- OUTSIDE RECORDS SUMMARY | 2025-04-26 17:09 | XMS_ITS | Encounter Summary ---
Author Organization [facility] Address 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
--- OUTSIDE RECORDS SUMMARY | 2025-04-26 17:09 | XMS_ITS | Referral Summary ---
Author [facility] Address [address] [place] [address] Care Team Providers Care Cashier Wrapper Name Role Phone Lorena Mcgraw MD Primary Care Provider [phone] Lorena Mcgraw MD Unavailable [phone] Allergies No known active allergies Medications cetirizine [...] 06/18/2021 Assessment & Plan (12/17/2021 10:26 AM DOUGH MIXING MACHINE OPERATOR): The patient is currently on vitamin-D replacement [...] psych Assessment & Plan (12/08/2021 10:27 AM DOUGH MIXING MACHINE OPERATOR): Chronic Patient would like to continue with xanax PRN for now Refer to psych Assessment & Plan (10/31/2021 5:34 AM DOUGH MIXING MACHINE OPERATOR): Still not controlled Retry abilify Use xanax [...] 12/12/2020 Assessment & Plan (08/25/2023 11:03 AM DOUGH MIXING MACHINE OPERATOR): She has primary snoring and her does [...] guard. Assessment & Plan (12/17/2021 10:26 AM DOUGH MIXING MACHINE OPERATOR): The patient was encouraged to try and exercise. Assessment & Plan (06/18/2021 10:19 AM CDT): Patient will continue to use positional therapy and exercise program. Assessment & Plan (02/06/2021 11:06 AM CDT): The patient had light snoring during the nocturnal polysomnogram and there are no snoring related arousals. Assessment & Plan (12/12/2020 2:20 PM DOUGH MIXING MACHINE OPERATOR): The patient will continue to practice positional therapy. Sleep paralysis 12/12/2020 Assessment & Plan (08/25/2023 11:03 AM DOUGH MIXING MACHINE OPERATOR): Her sleep paralysis has resolved. She will [...] patterns. Assessment & Plan (12/17/2021 10:26 AM DOUGH MIXING MACHINE OPERATOR): The patient's last episode of sleep paralysis [...] narcolepsy. Assessment & Plan (12/12/2020 2:20 PM DOUGH MIXING MACHINE OPERATOR): Due to the sleep paralysis I have ordered a nocturnal polysomnogram with dedicated MSLT Acute non-recurrent maxillary sinusitis 11/15/19 Assessment & Plan (01/17/2023 7:19 AM CDT): Flu swab/covid swab negative Order vanessa kulkarni, singualir Assessment & Plan (11/15/2020 5:21 AM DOUGH MIXING MACHINE OPERATOR): New Order shad, vanesas, margarito-d Current moderate episode of major depressive [...] 20mg Assessment & Plan (11/02/2020 2:31 PM DOUGH MIXING MACHINE OPERATOR): Continue hydroxyzine PRN for now - aware to avoid taking with Ambien at bedtime, but may use for daytime anxiety/panic attacks. Seeing counselor. Discussed medication change, but patient prefers to keep things the same for now. Assessment & Plan (05/02/2020 3:04 PM CDT): Likely contributing to sleep issues Continue atarax PRN for anxiety/sleep Insomnia 05/02/2020 Assessment & Plan (08/25/2023 11:03 AM DOUGH MIXING MACHINE OPERATOR): The patient's insomnia is under control with [...] care Assessment & Plan (12/17/2021 10:26 AM DOUGH MIXING MACHINE OPERATOR): The patient will go back on to [...] bedtime. Assessment & Plan (12/12/2020 2:20 PM DOUGH MIXING MACHINE OPERATOR): The patient continue to use Ambien 5 mg PO Q HS. Assessment & Plan (11/02/2020 2:30 PM DOUGH MIXING MACHINE OPERATOR): Seeing sleep medicine, Dr. Mandel Continue Ambien [...] CDT Gender Identity Female 09/17/2021 2:47 PM DOUGH MIXING MACHINE OPERATOR Sexual Orientation Straight 09/17/2021 2: 47 PM DOUGH MIXING MACHINE OPERATOR Last Filed Vital Signs Vital Sign Reading Time Taken Comments Blood Pressure 94/52 08/25/2023 10:34 AM DOUGH MIXING MACHINE OPERATOR Pulse 90 08/25/2023 10:34 AM DOUGH MIXING MACHINE OPERATOR Temperature 36.7 C (98.1 F) 08/25/2023 10:34 AM DOUGH MIXING MACHINE OPERATOR Respiratory Rate 18 08/25/2023 10:34 AM DOUGH MIXING MACHINE OPERATOR Oxygen Saturation 91% 08/25/2023 10:34 AM DOUGH MIXING MACHINE OPERATOR Inhaled Oxygen Concentration - - Weight 54 kg (119 lb) 08/25/2023 10:34 AM DOUGH MIXING MACHINE OPERATOR Height 162.6 cm (5' 4) 08/25/2023 10:34 AM DOUGH MIXING MACHINE OPERATOR Body Mass Index 20.43 08/25/2023 10:34 AM DOUGH MIXING MACHINE OPERATOR Plan of Treatment Not on file Procedures [...] CDT 07/11/2023 11:40 AM CDT Narrative PATHOLOGY [facility] - 07/14/2023 1:50 PM CDT [facility] Department of Pathology [address] [place], [place] [id number] Final Report Note to Patients: This report [...] the details. Patient Name: JO GRIFFIN Address: [address] [place] [address] [place] [address] Gender: F : 2000 (Age: 22) Service: Location: [facility] : [id number] Hospital #: [id number] Patient Type: [facility] SPECIMEN Taken: 07/10/2023 Received: 07/11/2023 Accessioned:: 07/11/2023 Reported: 07/14/2023 Physician(s): Dr. Lorena Mcgraw M.D. [facility] Diagnosis: SOURCE OF SPECIMEN Imaged Thinprep Pap Test w/ Reflex HPV - Recovery Auditor Cytologic Material: STATEMENT OF ADEQUACY - Specimen satisfactory for evaluation (vaginal pap) GENERAL CATEGORIZATION: - Negative for intraepithelial lesion or malignancy ABNER Latham(ASCP) Report Electronically Reviewed and Signed Out By ABNER Latham(ASCP) 07/14/2023 13:50:46Specimen(s) Received: A: Imaged Thinprep Pap Test w/ Reflex HPV - Recovery Auditor Cytologic Material Clinical History: The Pap test [...] determined by the Surgical Pathology Department at [facility] as part of an ongoing quality improvement [...] characteristics determined by the Surgical Pathology Department [facility]. It has not been cleared or approved by the U. S. Food and Drug Administration. Lorena Mcgraw MD LAB CYTOLOGY ORDERABLES F inal Result PATHOLOGY [facility] from Last 3 Months or Most Recently Relevant to Health [place] [address] [facility] Member Subscriber Plan / Payer (Ef fective 2021-Present) Name:Oleg Jo Relation to Subscriber:Self Name:Alex Dejesusth Payer ID:[id number] (NAIC) Group ID:Not on file Type:MEDICAID RISK OTHER Address: [address] [place], [place] [id number] [place] [address] [facility] Care Teams Cashier Wrapper Relationship Specialty Start Date End Date Lorena Mcgraw MD PCP - General 05/09/20 Lorena Mcgraw MD Family Medicine 05/09/20
--- OUTSIDE RECORDS SUMMARY | 2025-04-26 17:09 | XMS_ITS | Clinical Summary ---
Author Organization [facility] Address [address] [place] [address] Care Team Providers Care Medical Chemist Name Role Phone Unknown, Provider Primary Care Provider UnavailAlberto Crawley MD Unavailable [phone] Source Comments [facility],non-owned Affiliates and Associated Physician Practices is amultiple site organization consisting of ambulatory clinics and hospital sitesin [place], [place], [place] and [place]. This disclosure is being madepursuant to the Care Everywhere program and may not contain all information available regarding this patient. Last updated 18.[facility] Allergies No known active allergies Medications * Be aware that medications may not be up to date on this document. Alwaysverify current medications with the patient. fluticasone propionate (FLUTICASONE PROPIONATE) 50 MCG/ACT nasal spray [place] 1 [place] into each nostril once daily. Active cetirizine [...] [facility] [address] [place] [id number] Venancio Colby MD Discharge Disposition: Home or Self Care from Last 3 Months Family History Medical History Relation Name Comments CVA<65(female) Paternal Aunt Arrhythmia Neg Hx CVA<55(male) Neg Hx Cardiomyopathy Neg Hx Congenital Heart defect Neg Hx Heart Surgery Neg Hx Long QT Syndrome Neg Hx VT<55(male) Neg Hx VT<65(female) Neg Hx Marfan Syndrome Neg Hx Pacemaker [...] Health Maintenance Due Date Last Done Comments HIV SCREENING 2016 HPV VACCINE (1 - 3-dose series) 2016 CHLAMYDIA/GONORRHEA SCREENING 2017 MENINGOCOCCAL (Group B) VACC INE SHARED DECISION-MAKING (1 of 2 - Standard) 2017 HEPATITIS C SCREENING 11/06/2019 DTAP/TDAP/TD VACCINES (1 - Tdap) 2020 HEPATITIS B VACCINE (1 of 3 - 19+ 3-dose series) 2020 PAP SMEAR 2022 COVID-19 VACCINE ( - 2023-2 5 season) 2024 DEPRESSION SCREENING [...] (HCC) Encounter for ultrasound to assess growth ([facility]) from Last 3 Months Results * SONOGRAM - COMPLETE (02/01/2025 8:15 AM CDT) Linked Results Indication ======== Uterine Size < [...] 2 lb 11 oz EFW by Hadlock ([id number]) appropriate Growth Overview = Exam date GA [...] up as clinically indicated Coding ====== Procedures [id number]: US Preg Uterus [facility] Anatomical Region Laterality Modality Other 02/01/2025 8:15 AM CDT Lior Turcios MD [facility] ORDERABLES Edited Result - Final from Last 3 Months Insurance [place] [id number] [facility] [employer] [facility] Address: [facility] [address] [place] [address] MEDICA[place] Care Teams Medical Chemist Relationship Specialty Start Date End Date Unknown, Provider PCP - General 12/09/24 Alberto Tomlinson MD [address] [place] [address] Family Medicine 12/09/24"
--- OUTSIDE RECORDS SUMMARY | 2025-04-26 17:09 | XMS_ITS | Clinical Summary ---
Author Organization [facility] Address [address] [place] [address] Care Team Providers Care Motor Runner Name Role Phone Lorena Mcgraw MD Primary Care Provider [phone] Lorena Mcgraw MD Unavailable [phone] Allergies No known active allergies Medications cetirizine [...] 06/18/2021 Assessment & Plan (12/17/2021 10:26 AM VENEER SAMPLE MAKER): The patient is currently on vitamin-D replacement [...] psych Assessment & Plan (12/08/2021 10:27 AM VENEER SAMPLE MAKER): Chronic Patient would like to continue with xanax PRN for now Refer to psych Assessment & Plan (10/31/2021 5:34 AM VENEER SAMPLE MAKER): Still not controlled Retry abilify Use xanax [...] 12/12/2020 Assessment & Plan (08/25/2023 11:03 AM VENEER SAMPLE MAKER): She has primary snoring and her does [...] guard. Assessment & Plan (12/17/2021 10:26 AM VENEER SAMPLE MAKER): The patient was encouraged to try and exercise. Assessment & Plan (06/18/2021 10:19 AM CDT): Patient will continue to use positional therapy and exercise program. Assessment & Plan (02/06/2021 11:06 AM CDT): The patient had light snoring during the nocturnal polysomnogram and there are no snoring related arousals. Assessment & Plan (12/12/2020 2:20 PM VENEER SAMPLE MAKER): The patient will continue to practice positional therapy. Sleep paralysis 12/12/2020 Assessment & Plan (08/25/2023 11:03 AM VENEER SAMPLE MAKER): Her sleep paralysis has resolved. She will [...] patterns. Assessment & Plan (12/17/2021 10:26 AM VENEER SAMPLE MAKER): The patient's last episode of sleep paralysis [...] narcolepsy. Assessment & Plan (12/12/2020 2:20 PM VENEER SAMPLE MAKER): Due to the sleep paralysis I have ordered a nocturnal polysomnogram with dedicated MSLT Acute non-recurrent maxillary sinusitis 11/15/19 Assessment & Plan (01/17/2023 7:19 AM CDT): Flu swab/covid swab negative Order vanessa kulkarni, singualir Assessment & Plan (11/15/2020 5:21 AM VENEER SAMPLE MAKER): New Order shad, vanessa, margarito-d Current moderate [...] 20mg Assessment & Plan (11/02/2020 2:31 PM VENEER SAMPLE MAKER): Continue hydroxyzine PRN for now - aware to avoid taking with Ambien at bedtime, but may use for daytime anxiety/panic attacks. Seeing counselor. Discussed medication change, but patient prefers to keep things the same for now. Assessment & Plan (05/02/2020 3:04 PM CDT): Likely contributing to sleep issues Continue atarax PRN for anxiety/sleep Insomnia 05/02/2020 Assessment & Plan (08/25/2023 11:03 AM VENEER SAMPLE MAKER): The patient's insomnia is under control with [...] care Assessment & Plan (12/17/2021 10:26 AM VENEER SAMPLE MAKER): The patient will go back on to [...] bedtime. Assessment & Plan (12/12/2020 2:20 PM VENEER SAMPLE MAKER): The patient continue to use Ambien 5 mg PO Q HS. Assessment & Plan (11/02/2020 2:30 PM VENEER SAMPLE MAKER): Seeing sleep medicine, Dr. Mandel Continue Ambien [...] CDT Gender Identity Female 09/17/2021 2:47 PM VENEER SAMPLE MAKER Sexual Orientation Straight 09/17/2021 2: 47 PM VENEER SAMPLE MAKER Obstetrics History Last Filed Vital Signs Vital Sign Reading Time Taken Comments Blood Pressure 94/52 08/25/2023 10:34 AM VENEER SAMPLE MAKER Pulse 90 08/25/2023 10:34 AM VENEER SAMPLE MAKER Temperature 36.7 C (98.1 F) 08/25/2023 10:34 AM VENEER SAMPLE MAKER Respiratory Rate 18 08/25/2023 10:34 AM VENEER SAMPLE MAKER Oxygen Saturation 91% 08/25/2023 10:34 AM VENEER SAMPLE MAKER Inhaled Oxygen Concentration - - Weight 54 kg (119 lb) 08/25/2023 10:34 AM VENEER SAMPLE MAKER Height 162.6 cm (5' 4) 08/25/2023 10:34 AM VENEER SAMPLE MAKER Body Mass Index 20.43 08/25/2023 10:34 AM VENEER SAMPLE MAKER Plan of Treatment Health Maintenance Due Date [...] CDT 07/11/2023 11:40 AM CDT Narrative PATHOLOGY [facility] - 07/14/2023 1:50 PM CDT [facility] Department of Pathology [address] [place], [place] [id number] Final Report Note to Patients: This report [...] the details. Patient Name: JO GRIFFIN Address: [address] [place] [address] [place] [address] Gender: F : 2000 (Age: 22) Service: Location: [facility] #: [id number] Patient Type: [facility] SPECIMEN Taken: 07/10/2023 Received: 07/11/2023 Accessioned:: 07/11/2023 Reported: 07/14/2023 Physician(s): Dr. Lorena Mcgraw M.D. [facility] Diagnosis: SOURCE OF SPECIMEN Imaged Thinprep Pap Test w/ Reflex HPV - Commercial Service Technician Cytologic Material: STATEMENT OF ADEQUACY - Specimen satisfactory for evaluation (vaginal pap) GENERAL CATEGORIZATION: - Negative for intraepithelial lesion or malignancy ABNER Latham(ASCP) Report Electronically Reviewed and Signed Out By ABNER Latham(ASCP) 07/14/2023 13:50:46Specimen(s) Received: A: Imaged Thinprep Pap Test w/ Reflex HPV - Commercial Service Technician Cytologic Material Clinical History: The Pap test [...] determined by the Surgical Pathology Department at [facility] as part of an ongoing vice president quality improvement program and in compliance with federally mandated [...] characteristics determined by the Surgical Pathology Department [facility]. It has not been cleared or approved by the U. S. Food and Drug Administration. Lorena Mcgraw MD LAB CYTOLOGY ORDERABLES F inal Result PATHOLOGY [facility] from Last 3 Months or Most Recently Relevant to Health Maintenance Insurance [facility] [place] [address] [facility] Care Teams Motor Runner Relationship Specialty Start Date End Date Lorena Mcgraw MD PCP - General 05/09/20 Lorena Mcgraw MD Family Medicine 05/09/20
--- OUTSIDE RECORDS SUMMARY | 2025-04-26 17:09 | XMS_ITS | Clinical Summary ---
Author Organization [facility] Address [address] [place] [address] Phone Care Team Providers Care Mannequin Maker Name Role Phone Unavailable Primary Care Provider Unavailabl e Medications VIT-IRON FUM-FOLIC AC ORAL Take by mouth. Active Active Problems Problem Noted Date Diagnosed Date Syncope 08/24/2024 Estimated Date of Delivery Comme nts Yes 04/22/2025 Based on last me nstrual period of 07/16/2024 Encounters Date Type Department Care Team Description 04/22/2025 Hospital Encounter [facility] OB Triage [address] [place] [address] Sarah Rogers MD from Last 3 Months Social History Tobacco Use Types Packs/Day Years [...] on file Legal Sex Female 10:45 AM PROGRAMMER Gender Identity Not on file Sexual Orientation Not on file Last Filed Vital Signs Vital Sign Reading Time Taken Comments Blood Pressure 128/69 08/24/2024 11:23 AM PROGRAMMER Pulse 98 08/24/2024 10:36 AM PROGRAMMER Temperature 36.9 C (98.5 F) 08/24/2024 10:36 AM PROGRAMMER Respiratory Rate 20 08/24/2024 10:36 AM PROGRAMMER Oxygen Saturation 100% 08/24/2024 10:36 AM PROGRAMMER Inhaled Oxygen Concentration - - Weight 54.4 kg (120 lb) 08/24/2024 11:14 AM PROGRAMMER perpatient Height 161.3 cm (5' 3.5) 08/24/2024 11:14 AM CS T Body Mass Index 20.92 08/24/2024 11:14 AM PROGRAMMER Plan of Treatment Health Maintenance Due Date Last Done Comments CHLAMYDIA SCREENING (ANNUAL) 11-24 YEARS 2012 HPV/Cotest (21-29) 2022 DTAP/TDAP/TD VACCINES (8 - T d or Tdap) 05/28/2023 05/28/2013, 05/28/2013, 12/19/2005, Additional history exists INFLUENZA VACCINE (#1) 2025 07/30/2017 CERVICAL CANCER SCREENING 07/10/2026 PAP SMEAR 07/10/2026 07/10/2023 HEPATITIS B VACCINES Completed 11/11/2002, 04/09/2002, 02/26/2002 HPV VACCINES Completed 05/19/2014, 05/28/2013 RSV VACCINE (60+ or ) (No Doses Required) Completed Insurance [employer] Advance Directives For more information, please contact: [phone] * Full Code (Latest Code Status on File) Date Activated Date Inactivated Comments 08/24/2024 11:08 AM 08/24/2024 3:46 PM
--- OUTSIDE RECORDS SUMMARY | 2025-04-26 17:09 | XMS_ITS | Data Portability ---
Author Organization [facility] [employer] [facility], [employer] Address [address] [place] [address] Assessment Encounter Date Assessment Date Assessment LastModified by Organization Details LastModified Time 12/10/2023 12/10/2023 New patient presented for admission to the practice. Studies ordered as below. Discussed plan with patient, who expressed understanding . Follow up as noted below. [email or web address] Not available 12/10/2023 15:05:55 12/16/2024 12/16/2024 Patient presented for follow up. Studies ordered as below. Discussed plan with patient/dee krueger, who expressed understanding . Follow up as [...] panel w/ direct LDL, serum 2024 025 [facility], [address], [place], [address], 12/16/2024 13:23:51 CMP, serum or plasma 2024 025 [facility], [address], [place], [address], 01/21/2025 10:37:22 CBC w/ auto diff 2024 025 [facility], [address], [place], [address], 01/21/2025 10:37:21 TSH, serum or plasma 2024 025 [facility], [address], [place], [address], 12/16/2024 13:23:51 hemoglobi n A1c, QN, blood 2024 025 [facility], [address], [place], [address], 12/16/2024 13:23:50 C-peptide , serum 2024 025 [facility], [address], [place], [address], 01/21/2025 10:37:25 tb (M tuberculo sis), ifn-gamma mayte, blood 2023 024 [facility], [address], [place], [address], 12/10/2023 15:14:56 lipid panel w/ direct LDL, serum 2023 024 [facility], [address], [place], [address], 12/10/2023 15:14:56 CMP, serum or plasma 2023 024 [facility], [address], [place], [address], 05/25/2024 17:12:52 CBC w/ auto diff 2023 024 [facility], [address], [place], [address], 05/25/2024 17:12:53 TSH, serum or plasma 2023 024 [facility], [address], [place], [address], 12/10/2023 15:14:56 hemoglobi n A1c, QN, blood 2023 024 [facility], [address], [place], [address], 12/10/2023 15:14:56 C-peptide , serum 2023 024 [facility], [address], [place], [address], 12/10/2023 15:14:56 glucose tolerance test, 2-hour 2023 024 [facility], [address], [place], [address], 12/10/2023 15:14:56 Referral cardiolog ist referral 2024 025 [email or web address] Bryan Newton MD, [address], [place], [address], 12/16/2024 13:43:[address] referral [email or web address] [facility], [address], [place], [address], 12/16/2024 13:43:35 Procedures None recorded. Surgeries None recorded. Imaging electroca rdiogram [address] [facility], [facility], [address], [place], [address], 12/16/2024 13:53:36 Medication Orders None recorded. Patient TargetsNo targets recorded. Patient Instructions Encounter Date Encounter Id Patient Instructions Last Modified By Organization Details Last Modified Time 12/10/2023 [id number] learning about healthy weight [email or web address] Not available 12/10/2023 15:13:17 12/16/2024 [id number] dizziness: care instructions [email or web address] Not available 12/16/2024 13:23:33 learning about healthy weight [email or web address] Not available 12/16/2024 13:23:33 Reason for Referral [employer] Referral for Isaiah lt health examination Referring Physician: Molly Souza, Internal Medicine, Encounter Date: 12/16/2024 Mail Examiner Referral for Di zziness Referring Physician: Molly [...] NGA CONTR OL: < 7.0% Not Available [facility] [address] [place] [facility] [address], [place], [address], 05/25/2024 17:12:51 05/20/20 24 05/20/2024 HEMOG LOBIN A1C estimated average glucose 87 Not Available [facility] [address] [place] [facility] [address], [place], [address], 05/25/2024 17:12:51 05/20/20 24 05/20/2024 *C-PE PTIDE C-peptide 1.1 NG/mL 1.1-4. 4 NOTE: REFER ENCE RANGE APPLI ES TO FASTI NG SAMPL E ONLY. Not Available [facility] [address] [place] [facility] [address], [place], [address], 05/25/2024 17:12:51 05/20/20 24 05/20/2024 COMPR EHENS TRES METAB OLIC PANEL sodium 140 mmol/ L 134-14 4 Not Available [facility] [address] [place] [facility] [address], [place], [address], 05/25/2024 17:12:52 05/20/20 24 05/20/2024 COMPR EHENS TRES METAB OLIC PANEL potassium 4.1 mmol/ L 3.5-5. 2 Not Available [facility] [address] [facility] [address], [place], [address], 05/25/2024 17:12:52 05/20/20 24 05/20/2024 COMPR EHENS TRES METAB OLIC PANEL chloride 104 mmol/ L 97-108 Not Available [facility] [address] [place] [facility] [address], [place], [address], 05/25/2024 17:12:52 05/20/20 24 05/20/2024 COMPR EHENS TRES METAB OLIC PANEL carbon dioxide (co2) 25.0 mmol/ L 18.0-2 9.0 Not Available [facility] [address] [place] [facility] [address], [place], [address], 05/25/2024 17:12:52 05/20/20 24 05/20/2024 COMPR EHENS TRES METAB OLIC PANEL glucose 81 mg/dL 65-99 Srinivas l Fasti ng: < 100 mg/dL Impai red Fasti n - 125 mg/dL Diagn ostic of Diabe dahlia: => 126 mg/dL Ameri can [facility]ahl[facility] i[facility] n, 2008 Not Available [facility] [address] [place] [facility] [address], [place], [address], 05/25/2024 17:12:52 05/20/20 24 05/20/2024 COMPR EHENS TRES METAB OLIC PANEL urea nitrogen (BUN) 15 mg/dL 6-20 Not Available [facility] [address] [place] [facility] [address], [place], [address], 05/25/2024 17:12:52 05/20/20 24 05/20/2024 COMPR EHENS TRES METAB OLIC PANEL creatinine 0.68 mg/dL 0.57-1 .00 Not Available [facility] [address], [place], [address], 05/25/2024 17:12:52 05/20/2005/20/2024 COMPR EHENS TRES METAB OLIC PANEL eGFR 126 mL/mi nute/ 1.73_ m2 >59 MDRD Study Equat ion: The calcu lated GFR is NOT appli cable for pedia tric (< 18 years old) and > 70 year old patie nts and patie nts that are NOT of [place] . Not Available [facility] [address], [place], [address], 05/25/2024 17:12:52 05/20/2005/20/2024 COMPR EHENS TRES METAB OLIC PANEL calcium 9.1 mg/dL 8.7-10 .2 Not Available [facility] [address] [facility] [address] [address], [place], [address], 05/25/2024 17:12:52 05/20/20 24 05/20/2024 COMPR EHENS TRES METAB OLIC PANEL protein, total 7.1 gm/dL 6.4-8. 3 Not Available [facility] [address], [place], [address], 05/25/2024 17:12:52 05/20/20 24 05/20/2024 COMPR EHENS TRES METAB OLIC PANEL albumin 4.7 gm/dL 3.5-5. 2 Not Available [facility] [address], [place], [address], 05/25/2024 17:12:52 05/20/2005/20/2024 COMPR EHENS TRES METAB OLIC PANEL bilirubin, total 0.30 mg/dL 0.00-1 .20 Not Available [facility] [address] [facility] [address], [place], [address], 05/25/2024 17:12:52 05/20/20 24 05/20/2024 COMPR EHENS TRES METAB OLIC PANEL alkaline phosphatase (ALP) 107 U/L 39-117 Not Available [facility] [address] [place] [facility] [address], [place], [address], 05/25/2024 17:12:52 05/20/20 24 05/20/2024 COMPR EHENS TRES METAB OLIC PANEL aspartate aminotransfe rase (AST) 15 U/L 0-32 Not Available [facility] [address] [place] [facility] [address], [place], [address], 05/25/2024 17:12:52 05/20/20 24 05/20/2024 COMPR EHENS TRES METAB OLIC PANEL alanine aminotransfe rase (ALT) 15 U/L 0-33 Not Available [facility] [address] [place] [facility] [address], [place], [address], 05/25/2024 17:12:52 05/20/20 24 05/20/2024 COMPR EHENS TRES METAB OLIC PANEL A/G ratio (calculated) 2.0 ratio 1.0-2. 7 Not Available [facility] [address] [place] [facility] [address], [place], [address], 05/25/2024 17:12:52 05/20/20 24 05/20/2024 COMPR EHENS TRES METAB OLIC PANEL globulin (calculated) 2.4 gm/dL 1.5-3. 8 Not Available [facility] [address] [place] [facility] [address], [place], [address], 05/25/2024 17:12:52 05/20/20 24 05/20/2024 COMPR EHENS TRES METAB OLIC PANEL BUN/creatini ne ratio (calculated) 22.1 ratio 8.0-20 .0 high Not Available [facility] [address] [place] [facility] [address], [place], [address], 05/25/2024 17:12:52 05/20/20 24 05/20/2024 COMPR EHENS TRES METAB OLIC PANEL serum hemolysis index NORMAL index normal Not Available [facility] [address] [place] [facility] [address], [place], [address], 05/25/2024 17:12:52 05/20/20 24 05/20/2024 LIPID PANEL W/ CALC. LDL cholesterol, total 149 mg/dL 100-19 9 Not Available [facility] [address] [place] [facility] [address], [place], [address], 05/25/2024 17:12:52 05/20/20 24 05/20/2024 LIPID PANEL W/ CALC. LDL HDL cholesterol 46 mg/dL =>[address] [facility] [address] [place] [facility] [address], [place], [address], 05/25/2024 17:12:52 05/20/20 24 05/20/2024 LIPID PANEL W/ CALC. LDL LDL cholesterol (calculated) 93 mg/dL 0-99 Not Available [facility] [address] [place] [facility] [address], [place], [address], 05/25/2024 17:12:52 05/20/20 24 05/20/2024 LIPID PANEL W/ CALC. LDL triglyceride s 52 mg/dL 50-149 Not Available [facility] [address] [place] [facility] [address], [place], [address], 05/25/2024 17:12:52 05/20/20 24 05/20/2024 LIPID PANEL W/ CALC. LDL chol/HDL ratio (calculated) 3.24 ratio 0.00-5 .00 Not Available [facility] [address] [place] [facility] [address], [place], [address], 05/25/2024 17:12:52 05/20/20 24 05/20/2024 LIPID PANEL W/ CALC. LDL VLDL cholesterol (calculated) 10 mg/dL 5-40 Not Available [facility] [address] [place] [facility] [address], [place], [address], 05/25/2024 17:12:52 05/20/20 24 05/20/2024 THYRO ID-ST IM. HORMO NE (TSH) , HIGH- SENSI TIVE thyroid-stim . hormone (TSH), hs 2.47 uIU/m L 0.27-4 .20 Not Available [facility] [address] [place] [facility] [address], [place], [address], 05/25/2024 17:12:53 05/20/20 24 05/20/2024 CBC WITH AUTO- DIFFE RENTI AL WBC 6.1 10*3/ uL 3.4-10 .8 Not Available [facility] [address] [place] [facility] [address], [place], [address], 05/25/2024 17:12:53 05/20/20 24 05/20/2024 CBC WITH AUTO- DIFFE RENTI AL RBC 4.50 10*6/ uL 3.80-5 .30 Not Available [facility] [address], [place], [address], 05/25/2024 17:12:53 05/20/20 24 05/20/2024 CBC WITH AUTO- DIFFE RENTI AL HGB 13.1 g/dL 11.1-1 5.9 Not Available [facility] [address] [place] [facility] [address], [place], [address], 05/25/2024 17:12:53 05/20/20 24 05/20/2024 CBC WITH AUTO- DIFFE RENTI AL HCT 42.3 % 34.0-4 6.6 Not Available [facility] [address] [place] [facility] [address], [place], [address], 05/25/2024 17:12:53 05/20/20 24 05/20/2024 CBC WITH AUTO- DIFFE RENTI AL MCV 94 fL 79-97 Not Available [facility] [address] [place] [facility] [address], [place], [address], 05/25/2024 17:12:53 05/20/20 24 05/20/2024 CBC WITH AUTO- DIFFE RENTI AL MCH 29.1 pg 26.6-3 3.0 Not Available [facility] [address] [facility] [address], [place], [address], 05/25/2024 17:12:53 05/20/20 24 05/20/2024 CBC WITH AUTO- DIFFE RENTI AL MCHC 31.0 g/dL 31.5-3 5.7 low Not Available [facility] [address], [place], [address], 05/25/2024 17:12:53 05/20/20 24 05/20/2024 CBC WITH AUTO- DIFFE RENTI AL RDW 12.7 % 11.5-1 4.5 Not Available [facility] [address], [place], [address], 05/25/2024 17:12:53 05/20/20 24 05/20/2024 CBC WITH AUTO- DIFFE RENTI AL platelets 230 10*3/ uL 150-40 0 Not Available [facility] [address], [place], [address], 05/25/2024 17:12:53 05/20/20 24 05/20/2024 CBC WITH AUTO- DIFFE RENTI AL MPV 11 fL 9-13 Not Available [facility] [address], [place], [address], 05/25/2024 17:12:53 05/20/20 24 05/20/2024 CBC WITH AUTO- DIFFE RENTI AL neutrophils 47.5 % 40.0-7 4.0 Not Available [facility] [address], [place], [address], 05/25/2024 17:12:53 05/20/20 24 05/20/2024 CBC WITH AUTO- DIFFE RENTI AL absolute neutrophils 2.88 10*3/ uL 1.40-7 .00 Not Available [facility] [address] [facility] [address], [place], [address], 05/25/2024 17:12:53 05/20/20 24 05/20/2024 CBC WITH AUTO- DIFFE RENTI AL lymphocytes 40.4 % 14.0-4 6.0 Not Available [facility] [address] [place] [facility] [address], [place], [address], 05/25/2024 17:12:53 05/20/20 24 05/20/2024 CBC WITH AUTO- DIFFE RENTI AL absolute lymphocytes 2.45 10*3/ uL 0.70-3 .10 Not Available [facility] [address] [place] [facility] [address], [place], [address], 05/25/2024 17:12:53 05/20/20 24 05/20/2024 CBC WITH AUTO- DIFFE RENTI AL monocytes 8.4 % 4.0-12 .0 Not Available [facility] [address] [place] [facility] [address], [place], [address], 05/25/2024 17:12:53 05/20/20 24 05/20/2024 CBC WITH AUTO- DIFFE RENTI AL absolute monocytes 0.51 10*3/ uL 0.10-0 .90 Not Available [facility] [address] [place] [facility] [address], [place], [address], 05/25/2024 17:12:53 05/20/20 24 05/20/2024 CBC WITH AUTO- DIFFE RENTI AL eosinophils 2.5 % 0.0-5. 0 Not Available [facility] [address] [place] [facility] [address], [place], [address], 05/25/2024 17:12:53 05/20/20 24 05/20/2024 CBC WITH AUTO- DIFFE RENTI AL absolute eosinophils 0.15 10*3/ uL 0.00-0 .40 Not Available [facility] [address] [place] [facility] [address], [place], [address], 05/25/2024 17:12:53 05/20/20 24 05/20/2024 CBC WITH AUTO- DIFFE RENTI AL basophils 1.0 % 0.0-3. 0 Not Available [facility] [address] [place] [facility] [address], [place], [address], 05/25/2024 17:12:53 05/20/20 24 05/20/2024 CBC WITH AUTO- DIFFE RENTI AL absolute basophils 0.06 10*3/ uL 0.00-0 .20 Not Available [facility] [address] [place] [facility] [address], [place], [address], 05/25/2024 17:12:53 05/20/20 24 05/20/2024 CBC WITH AUTO- DIFFE RENTI AL imm. gran. 0.2 % 0.0-2. 0 Not Available [facility] [address] [place] [facility] [address], [place], [address], 05/25/2024 17:12:53 05/20/20 24 05/20/2024 CBC WITH AUTO- DIFFE RENTI AL abs. imm. gran. 0.01 10*3/ uL 0.00-0 .10 Not Available [facility] [address] [place] [facility] [address], [place], [address], 05/25/2024 17:12:53 05/20/20 24 05/20/2024 GLUCO SE PAULA ANCE TEST (GTT) , 2-MICHEL R glucose tolerance test, fasting 70 mg/dL 65-99 Not Available [facility] [address] [place] [facility] [address], [place], [address], 05/25/2024 17:12:53 05/20/20 24 05/20/2024 GLUCO SE PAULA ANCE TEST (GTT) , 2-MICHEL R glucose tolerance test, 1 hour 72 mg/dL 65-179 Not Available [facility] [address] [facility] [address], [place], [address], 05/25/2024 17:12:53 05/20/20 24 05/20/2024 GLUCO SE PAULA ANCE TEST (GTT) , 2-MICHEL R glucose tolerance test, 2 hour 70 mg/dL 65-154 Not Available [facility] [address] [facility] [address], [place], [address], 05/25/2024 17:12:53 05/20/2005/20/2024 GLUCO SE PAULA ANCE TEST (GTT) , 2-MICHEL R serum hemolysis index NORMAL index normal Not Available [facility] [address] [facility] [address], [place], [address], 05/25/2024 17:12:53 05/20/20 24 05/20/2024 GLUCO SE PAULA ANCE TEST (GTT) , 2-MICHEL R glucose tolerance test, fasting 70 mg/dL 65-99 Not Available [facility] [address] [place] [facility] [address], [place], [address], 05/25/2024 17:12:53 05/20/20 24 05/20/2024 GLUCO SE PAULA ANCE TEST (GTT) , 2-MICHEL R glucose tolerance test, 1 hour 72 mg/dL 65-179 Not Available [facility] [address] [facility] [address], [place], [address], 05/25/2024 17:12:53 05/20/20 24 05/20/2024 GLUCO SE PAULA ANCE TEST (GTT) , 2-MICHEL R glucose tolerance test, 2 hour 70 mg/dL 65-154 Not Available [facility] [address] [place] [facility] [address], [place], [address], 05/25/2024 17:12:53 05/20/20 24 05/20/2024 GLUCO SE PAULA ANCE TEST (GTT) , 2-MICHEL R serum hemolysis index NORMAL index normal Not Available [facility] [address] [place] [facility] [address], [place], [address], 05/25/2024 17:12:53 05/20/20 24 05/20/2024 GLUCO SE PAULA ANCE TEST (GTT) , 2-MICHEL R glucose tolerance test, fasting 70 mg/dL 65-99 Not Available [facility] [address] [place] [facility] [address], [place], [address], 05/25/2024 17:12:53 05/20/20 24 05/20/2024 GLUCO SE PAULA ANCE TEST (GTT) , 2-MICHEL R glucose tolerance test, 1 hour 72 mg/dL 65-179 Not Available [facility] [address] [place] [facility] [address], [place], [address], 05/25/2024 17:12:53 05/20/20 24 05/20/2024 GLUCO SE PAULA ANCE TEST (GTT) , 2-MICHEL R glucose tolerance test, 2 hour 70 mg/dL 65-154 Not Available [facility] [address] [place] [facility] [address], [place], [address], 05/25/2024 17:12:53 05/20/20 24 05/20/2024 GLUCO SE PAULA ANCE TEST (GTT) , 2-MICHEL R serum hemolysis index NORMAL index normal Not Available [facility] [address] [place] [facility] [address], [place], [address], 05/25/2024 17:12:53 05/20/20 24 05/22/2024 QUANT IFERO N - TB GOLD PLUS quantiferon incubation INCUBA TION PERFOR MED. normal Not Available [facility] [address] [place] [facility] [address], [place], [address], 05/25/2024 17:12:54 05/20/20 24 05/22/2024 QUANT IFERO [...] contr ol for the test. Not Available [facility] [address] [place] [facility] [address], [place], [address], 05/25/2024 17:12:54 05/20/20 24 05/25/2024 QUANT IFERO N - TB GOLD PLUS quantiferon TB1 Ag value 0.03 IU/mL normal Not Available [facility] [address] [place] [facility] [address], [place], [address], 05/25/2024 17:12:54 05/20/20 24 05/25/2024 QUANT IFERO N - TB GOLD PLUS quantiferon TB2 Ag value 0.01 IU/mL normal Not Available [facility] [address] [place] [facility] [address], [place], [address], 05/25/2024 17:12:54 05/20/20 24 05/25/2024 QUANT IFERO N - TB GOLD PLUS quantiferon nil value 0.02 IU/mL normal Not Available [facility] [address] [place] [facility] [address], [place], [address], 05/25/2024 17:12:54 05/20/20 24 05/25/2024 QUANT IFERO N - TB GOLD PLUS quantiferon mitogen value >10.00 IU/mL normal Not Available [facility] [address] [place] [facility] [address], [place], [address], 05/25/2024 17:12:54 05/20/20 24 05/25/2024 QUANT IFERO [...] oassa y metho dolog y Not Available [facility] [address], [place], [address], 05/25/2024 17:12:54 01/21/20 25 01/21/2025 CBC/D IFF AMBIG UOUS DEFAU LT WBC 10.6 x10e3 /uL 3.4-10 .8 normal Not Available [facility] ([facility]) [address] [place], [address], 01/21/2025 10:37:21 01/21/20 25 01/21/2025 CBC/D IFF AMBIG UOUS DEFAU LT RBC 3.98 x10e6 /uL 3.77-5 .28 normal Not Available [facility] ([facility]) [address] [place], [address], 01/21/2025 10:37:21 01/21/20 25 01/21/2025 CBC/D IFF AMBIG UOUS DEFAU LT hemoglobin 12.2 g/dL 11.1-1 5.9 normal Not Available [facility] ([facility]) [address] [place], [address], 01/21/2025 10:37:21 01/21/20 25 01/21/2025 CBC/D IFF AMBIG UOUS DEFAU LT hematocrit 36.8 % 34.0-4 6.6 normal Not Available [facility] ([facility]) [address] [facility] [place], [address], 01/21/2025 10:37:21 01/21/20 25 01/21/2025 CBC/D IFF AMBIG UOUS DEFAU LT MCV 93 fL 79-97 normal Not Available [facility] ([facility]) [address] [facility], [place], [address], 01/21/2025 10:37:21 01/21/20 25 01/21/2025 CBC/D IFF AMBIG UOUS DEFAU LT MCH 30.7 pg 26.6-3 3.0 normal Not Available [facility] ([facility]) [address] [place], [address], 01/21/2025 10:37:21 01/21/20 25 01/21/2025 CBC/D IFF AMBIG UOUS DEFAU LT MCHC 33.2 g/dL 31.5-3 5.7 normal Not Available [facility] ([facility]) [address] [facility], [place], [address], 01/21/2025 10:37:21 01/21/20 25 01/21/2025 CBC/D IFF AMBIG UOUS DEFAU LT RDW 11.6 % 11.7-1 5.4 below low normal Not Available [facility] ([facility]) [address] [place], [address], 01/21/2025 10:37:21 01/21/20 25 01/21/2025 CBC/D IFF AMBIG UOUS DEFAU LT platelets 215 x10e3 /uL 150-45 0 normal Not Available [facility] ([facility]) [address] [place], [address], 01/21/2025 10:37:21 01/21/20 25 01/21/2025 CBC/D IFF AMBIG UOUS DEFAU LT neutrophils 72 % not estab. normal Not Available [facility] ([facility]) [address] [place], [address], 01/21/2025 10:37:21 01/21/20 25 01/21/2025 CBC/D IFF AMBIG UOUS DEFAU LT lymphs 19 % not estab. normal Not Available [facility] ([facility]) [address] [facility], [place], [address], 01/21/2025 10:37:21 01/21/20 25 01/21/2025 CBC/D IFF AMBIG UOUS DEFAU LT monocytes 6 % not estab. normal Not Available [facility] ([facility]) [address] [facility], [place], [address], 01/21/2025 10:37:21 01/21/20 25 01/21/2025 CBC/D IFF AMBIG UOUS DEFAU LT eos 2 % not estab. normal Not Available [facility] ([facility]) [address] [facility], [place], [address], 01/21/2025 10:37:21 01/21/20 25 01/21/2025 CBC/D IFF AMBIG UOUS DEFAU LT basos 0 % not estab. normal Not Available [facility] ([facility]) [address] [facility], [place], [address], 01/21/2025 10:37:21 01/21/20 25 01/21/2025 CBC/D IFF AMBIG UOUS DEFAU LT immature cells [employer]OCK [employer]ER Not Available [facility] ([facility]) [address] [facility], [place], [address], 01/21/2025 10:37:21 01/21/20 25 01/21/2025 CBC/D IFF AMBIG UOUS DEFAU LT neutrophils (absolute) 7.6 x10e3 /uL 1.4-7. 0 above high normal Not Available [facility] ([facility]) [address] [facility], [place], [address], 01/21/2025 10:37:21 01/21/20 25 01/21/2025 CBC/D IFF AMBIG UOUS DEFAU LT lymphs (absolute) 2.0 x10e3 /uL 0.7-3. 1 normal Not Available [facility] ([facility]) [address] [facility] [facility], [place], [address], 01/21/2025 10:37:21 01/21/20 25 01/21/2025 CBC/D IFF AMBIG UOUS DEFAU LT monocytes(ab solute) 0.6 x10e3 /uL 0.1-0. 9 normal Not Available [facility] ([facility]) [address] [place], [address], 01/21/2025 10:37:21 01/21/20 25 01/21/2025 CBC/D IFF AMBIG UOUS DEFAU LT eos (absolute) 0.2 x10e3 /uL 0.0-0. 4 normal Not Available [facility] ([facility]) [address] [facility], [place], [address], 01/21/2025 10:37:21 01/21/20 25 01/21/2025 CBC/D IFF AMBIG UOUS DEFAU LT baso (absolute) 0.0 x10e3 /uL 0.0-0. 2 normal Not Available [facility] ([facility]) [address] [place], [address], 01/21/2025 10:37:21 01/21/20 25 01/21/2025 CBC/D IFF AMBIG UOUS DEFAU LT immature granulocytes 1 % not estab. Not Available [facility] ([facility]) [address] [place], [address], 01/21/2025 10:37:21 01/21/20 25 01/21/2025 CBC/D IFF AMBIG UOUS DEFAU LT immature grans (abs) 0.1 x10e3 /uL 0.0-0. 1 Not Available [facility] ([facility]) [address] [facility] [place], [address], 01/21/2025 10:37:21 01/21/20 25 01/21/2025 CBC/D IFF YOSSI JAIMES LT NRBC SOCK BOARDER Not Available [facility] ([facility]) [address] [facility], [place], [address], 01/21/2025 10:37:21 01/21/20 25 01/21/2025 CBC/D IFF YOSSI JAIMES LT hematology comments: SOCK BOARDER A hand- writt en panel /prof ile was recei vasquez from your offic e. In accor dance with the [facility] Yossi ricci Test Code Polic y dated April 2003, we have assig lena CBC with Diffe jeronimo al/Pl jim troy, Test Code #[address]. If this is not the testi ng you wishe d to recei ve on this speci men, pleas e conta ct the [facility] Clien t Inqui ry/ Techn ical Servi jessica Depar tment to bela fy the test order . We appre ciate your busin ess. Not Available [facility] ([facility]) [address] [facility], [place], [address], 01/21/2025 10:37:21 01/21/20 25 01/21/2025 COMP. METAB OLIC PANEL (14) glucose 110 mg/dL 70-99 above high normal Not Available [facility] ([facility]) [address] [place], [address], 01/21/2025 10:37:22 01/21/20 25 01/21/2025 COMP. METAB OLIC PANEL (14) BUN 9 mg/dL 6-20 normal Not Available [facility] ([facility]) [address] [facility], [place], [address], 01/21/2025 10:37:22 01/21/20 25 01/21/2025 COMP. METAB OLIC PANEL (14) creatinine 0.49 mg/dL 0.57-1 .00 below low normal Not Available [facility] ([facility]) [address] [facility], [place], [address], 01/21/2025 10:37:22 01/21/20 25 01/21/2025 COMP. METAB OLIC PANEL (14) eGFR 136 mL/mi n/1.7 3 >59 normal Not Available [facility] ([facility]) [address] [place], [address], 01/21/2025 10:37:22 01/21/20 25 01/21/2025 COMP. METAB OLIC PANEL (14) BUN/creatini ne ratio 18 9-23 normal Not Available [facility] ([facility]) [address] [place], [address], 01/21/2025 10:37:22 01/21/20 25 01/21/2025 COMP. METAB OLIC PANEL (14) sodium 137 mmol/ L 134-14 4 normal Not Available [facility] ([facility]) [address] [place], [address], 01/21/2025 10:37:22 01/21/20 25 01/21/2025 COMP. METAB OLIC PANEL (14) potassium 3.7 mmol/ L 3.5-5. 2 normal Not Available [facility] ([facility]) [address] [place], [address], 01/21/2025 10:37:22 01/21/20 25 01/21/2025 COMP. METAB OLIC PANEL (14) chloride 101 mmol/ L 96-106 normal Not Available [facility] ([facility]) [address] [place], [address], 01/21/2025 10:37:22 01/21/20 25 01/21/2025 COMP. METAB OLIC PANEL (14) carbon dioxide, total 20 mmol/ L 20-29 normal Not Available [facility] ([facility]) [address] [facility] [place], [address], 01/21/2025 10:37:22 01/21/20 25 01/21/2025 COMP. METAB OLIC PANEL (14) calcium 8.2 mg/dL 8.7-10 .2 below low normal Not Available [facility] ([facility]) [address] [place], [address], 01/21/2025 10:37:22 01/21/20 25 01/21/2025 COMP. METAB OLIC PANEL (14) protein, total 6.1 g/dL 6.0-8. 5 normal Not Available [facility] ([facility]) [address] [place], [address], 01/21/2025 10:37:22 01/21/20 25 01/21/2025 COMP. METAB OLIC PANEL (14) albumin 3.7 g/dL 4.0-5. 0 below low normal Not Available [facility] ([facility]) [address], [place], [address], 01/21/2025 10:37:22 01/21/20 25 01/21/2025 COMP. METAB OLIC PANEL (14) globulin, total 2.4 g/dL 1.5-4. 5 Not Available [facility] ([facility]) [address] [facility] [place], [address], 01/21/2025 10:37:22 01/21/20 25 01/21/2025 COMP. METAB OLIC PANEL (14) bilirubin, total <0.2 mg/dL 0.0-1. 2 Not Available [facility] ([facility]) [address] [facility] [place], [address], 01/21/2025 10:37:22 01/21/20 25 01/21/2025 COMP. METAB OLIC PANEL (14) alkaline phosphatase 86 IU/L 44-121 normal Not Available [facility] ([facility]) [address] [place], [address], 01/21/2025 10:37:22 01/21/20 25 01/21/2025 COMP. METAB OLIC PANEL (14) AST (SGOT) 14 IU/L 0-40 normal Not Available [facility] ([facility]) [address] [place], [address], 01/21/2025 10:37:22 01/21/20 25 01/21/2025 COMP. METAB OLIC PANEL (14) ALT (SGPT) 11 IU/L 0-32 normal Not Available [facility] ([facility]) [address] [place], [address], 01/21/2025 10:37:22 01/21/20 25 01/21/2025 LIPID PANEL cholesterol, total 236 mg/dL 100-19 9 above high normal Not Available [facility] ([facility]) [address] [place], [address], 01/21/2025 10:37:23 01/21/20 25 01/21/2025 LIPID PANEL triglyceride s 159 mg/dL 0-149 above high normal Not Available [facility] ([facility]) [address] [place], [address], 01/21/2025 10:37:23 01/21/20 25 01/21/2025 LIPID PANEL HDL cholesterol 69 mg/dL >39 normal Not Available [facility] ([facility]) [address] [place], [address], 01/21/2025 10:37:23 01/21/20 25 01/21/2025 LIPID PANEL VLDL cholesterol estefani 28 mg/dL 5-40 Not Available [facility] ([facility]) [address] [place], [address], 01/21/2025 10:37:23 01/21/20 25 01/21/2025 LIPID PANEL LDL chol calc (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 6 below low normal Predi abete s: 5.7 - 6.4 Diabe dahlia: >6.4 Glyce nga contr ol for adult s with diabe dahlia: <7.0 Not Available [facility] ([facility]) [address] [place], [address], 01/21/2025 10:37:24 01/21/20 25 01/21/2025 TSH TSH 1.000 uIU/m L 0.450- 4.500 normal Not Available [facility] ([facility]) [address] [place], [address], 01/21/2025 10:37:25 01/21/20 25 01/21/2025 C-PEP TIDE, SERUM C-peptide, serum 12.2 NG/mL 1.1-4. 4 above high normal C-Pep tide refer ence inter gemma is for fasti ng patie nts. Not Available [facility] ([facility]) [address] [place], [address], 01/21/2025 10:37:25 01/21/20 25 01/20/2025 YOSSI CARTER V CMP14 DEFAU LT yossi carterv CMP14 default Commen t A hand- writt en panel /prof ile was recei vasquez from your offic e. In accor dance with the [facility] Yossi ricci Test Code Polic y dated April 2003, we have compl eted your order by using the close st curre ntly or forme rly recog nized AMA panel . We have asscodey paredes Compr ehens tres Metab olic Panel [...] ciate your busin ess. Not Available [facility] ([facility]) [address] [facility], [place], [address], 01/21/2025 10:37:26 01/21/20 25 01/20/2025 YOSSI CARTER V LP DEFAU LT yossi carterv LP default Commen t A hand- writt en panel /prof ile was recei vasquez from your offic e. In accor dance with the [facility] Alizecodey ricci Test Code Polic y dated April [...] ciate your busin ess. Not Available [facility] ([facility]) [address] [facility], [place], [address], 01/21/2025 10:37:27 12/16/19 25 12/16/2024 elect rocar diogr am No observ ation record ed. [email or web address] [facility], [facility] [address], [place], [address], 12/16/2024 22:34:57 12/16/19 25 12/16/2024 elect rocar diogr am No observ ation record ed. [email or web address] [facility], [facility] [address], [place], [address], 12/16/2024 22:34:51 12/16/19 25 elect hailey gong am No observ ation record ed. [email or web address] [facility], [facility] [address], [place], [address], 12/16/2024 22:39:22 Result Notes None recorded. Problems Name Problem SNOMED Code Status Onset Date Resolution Date Notes Provider Name and Address Organization Details Recorded Time Mixed hyperlipidemia 013086770 Active 2024 Molly Souza MD [address], [place], [address], [facility] 5 10:42:49 Family history of cystic fibrosis 731222959 Active 2023 Molly Souza MD [address], [place], [address], [facility] 4 15:06:44 Family history of diabetes mellitus 811398790 Active 2023 Molly Souza MD [address], [place], [address], [facility] 4 15:06:45 Body mass index less than 20 685799550 Active 2023 Molly Souza MD [address], [place], [address], [facility] 4 15:12:36 Problem Notes None recorded. Medical Equipment None Reported. Allergies No known drug allergies Medications Not known to be on any medication Vitals Date Recorded Heart rate Respiratory rate Body temperature Body height Body mass index (BMI) Body weight Systolic And Diastolic Provider Name and Address Organization Details Last Updated DateTime 4 75 /min 16 /min 98.9 [degF] 162.56 cm 18.9 kg/m2 17720.1 6 g 105/68 mm[Hg] Kavya Blood [facility] 4 14:49:29 Date Recorded Body weight Body mass index (BMI) Body height Body temperature Respiratory rate Heart rate Systolic And Diastolic Provider Name and Address Organization Details Last Updated DateTime 5 85145.1 9 g 22.7 kg/m2 162.56 cm 98 [degF] 16 /min 83 /min 109/66 mm[Hg] Kavya Blood [facility] 5 12:52:22 Social History None recorded. Functional [...] quadrivalent 4 completed Molly Souza MD [address], [place], [address], [facility] 12/10/2023 15:02:45 Td(adult) unspecified formulation 3 completed Molly Souza MD [address], [place], [address], [facility] 12/10/2023 15:03:17 MMR 6 completed Molly Souza MD [address], [place], [address], [facility] 12/10/2023 15:03:45 pneumococcal, unspecified formulation 6 completed Molly Souza MD [address], [place], [address], [facility] 12/10/2023 15:04:19 Hep A, pediatric, unspecified formulation 6 completed Molly Souza MD [address], [place], [address], [facility] 12/10/2023 15:04:49 Hep B, unspecified formulation 3 completed Molly Souza MD [address], [place], [address], [facility] 12/10/2023 15:05:05 Td(adult) unspecified formulation 4 completed Molly Souza MD [address], [place], [address], [facility] 12/16/2024 13:15:14 Past Encounters Encounter ID Performer Location Encounter Start Date Encounter Closed Date Diagnosis/Indication Diagnosis SNOMED-CT Code Diagnosis ICD10 Code Diagnosis Note [id number] [facility] [address] [place] [address] 12/10/2023 14:08:18 12/10/2023 15:22:04 Adult health examination 078861510 Z00.00 per pt had optometry 05/2023 Body mass index less than 20 399945716 Z68.1 Family his tory of diabetes mellitus 372230238 Z83.3 father Family his tory of cystic fibrosis 729246547 Z83.49 sisterper pt she was tested for CF and was -ve Screening for malignant neoplasm of cervix 829693572 Z12.4 per pt had PAP 06/2023 Active or passive immunization 462357996 Z23 [id number] Molly Souza MD [place] [employer] [facility] [address] [place] [address] 12/16/2024 12:31:26 12/16/2024 13:43:35 Adult health examination 976255322 Z00.00 per pt had optometry 05/2023 Body mass index less than 20 629913451 Z68.1 Family his tory of diabetes mellitus 275623808 Z83.3 father Family his tory of cystic fibrosis 855027818 Z83.49 sisterper pt she was tested for CF and was -ve Screening for malignant neoplasm of cervix 860848878 Z12.4 per pt had PAP 06/2023 Active or passive immunization 750866296 Z23 up to date Gestation period, 22 weeks 34768409 Z3A.22 F/O with OB Dizziness 471616988 R42 NL neuro ex Health Concerns Section Related Observation LastModified by Organization Detai ls LastModified Time None Recorded Concern Status LastModified by Organization Details LastModified Time None Recorded Advance Directives Directive None Recorded Payers Insurance Date Sequence Insurance Name Policy Number Policy Jones Covered Member ID Jones Member ID Guarantor Name 12/16/2024 1 [facility] Jo Dejesus [id number] Jo Dejesus Notes Date Note Type [...] loss while driving Molly Souza MD [address] [facility] [address], [place], [address], [facility] 12/10/2023 15:14:40 12/16/2024 text/html Hypertension F/UReported bypatient.Medications: taking medications as directed; no side effects from medication Lifestyle:regular exercise; limiting/avoiding salt; compliant with low salt diet Associated Symptoms:no lightheadedness; no chest pain; no shortness of breath; no palpitations; no edema; no calf pain with exertion; no headache[facility] Annual Wellness VisitReported bypatient.Diet and Nutrition:healthy diet [...] hearing loss while driving Molly Souza MD [address] [place] [address] [address], [place], [address], [facility] 12/16/2024 13:24:28 OBGyn Episode No OBEpisode recorded.
--- NOTE | 2025-04-26 17:22 | LDADM ---
This patient, Jo Dejesus, was admitted to Labor/Delivery/Recovery 105 on 04/26/25 at 17:03. Plans for labor, pain management and were discussed with patient. Patient/family oriented to hospital policies and general routines including ID bracelet, bed and alarms, visiting hours, pain management, procedures, bathroom and other care routines, personal items, smoking policy, room service/diet and guest tray routines, security routines, and visiting hours. Patient/Family are encouraged to report perceived risks to care and to ask questions if they do not understand what they are told or what they should do. See OBIX for further documentation.
[2025-04-26 18:00] LABS: Hematocrit 37.0 % (37.0-47.0); Hemoglobin 12.6 g/dL (12.0-15.0); Immature Granulocyte Percent A 1.3 % (0-0.5); Lymphocytes Absolute Auto 2.08 K/mm3 (0.9-3.2); Mean Corpuscular HGB Conc 34.1 g/dl (32-36); Mean Corpuscular Hemoglobin 30.4 pg (26-34); Mean Corpuscular Volume 89.2 fl (80-100); Nucleated Red Blood Cells Absolute Auto 0.000 K/mm3 (0.0-0.012); Nucleated Red Blood Cells Perc 0.0 % (0.0-0.2); Platelet Count Result 194 k/mm3 (150-375); Red Blood Count 4.15 M/mm3 (4.2-5.4); White Blood Count 10.2 K/mm3 (4.5-10.0)
[2025-04-26 18:44] LABS: Syphilis IgG/IgM Antibody Non-Reactive (Nonreactive)
--- NOTE | 2025-04-26 19:17 | WPDANESEPP ---
Anes - Eval Pre Procedure Procedure: labor epidural Date/Time: 04/26/25 19:17 Surgeon: heike Preop Diagnosis: pain during labor Pre Op Diagnosis: IOL Patient Data Age: 24 Gender: F Height: 1.6 m Weight: 73 kg Last Vital Signs Temp 36.6 C 04/26/25 18:00 Pulse 82 04/26/25 17:30 BP 122/80 04/26/25 17:30 Pulse Ox 97 04/26/25 17:29 O2 Del Method Room Air 04/26/25 18:05 Allergies Allergy/AdvReac Type Severity Reaction Status Date / Time No Known Drug Allergies AdvReac Mild na Verified 04/26/25 17:21 Home Medications ?Medication ?Instructions ?Recorded ?Confirmed ?Type vitamin#30 30 mg iron-10 1 cap PO DAILY 09/14/24 04/26/25 History mg iron-folic acid 1 mg-omg3 capsule Laboratory Tests 04/26/25 17:44 WBC 10.2 H K/mm3 (4.5-10.0) RBC 4.15 L M/mm3 (4.2-5.4) Hgb 12.6 g/dL (12.0-15.0) Hct 37.0 % (37.0-47.0) MCV 89.2 fl (80-100) MCH 30.4 pg (26-34) MCHC 34.1 g/dl (32-36) RDW 12.9 % (11.5-14.5) Plt Count 194 k/mm3 (150-375) MPV 10.8 H fl (7.4-10.4) Immature Gran % (Auto) 1.3 H % (0-0.5) Neut % (Auto) 66.6 % (45.5-73.1) Lymph % (Auto) 20.3 % (18.3-44.2) Boundary % (Auto) 9.7 H % (2.6-8.5) Eos % (Auto) 1.7 % (0-4.4) Baso % (Auto) 0.4 % (0.2-1.2) Lymph # (Auto) 2.08 K/mm3 (0.9-3.2) Boundary # (Auto) 1.0 H K/mm3 (0.1-0.6) Eos # (Auto) 0.2 K/mm3 (0-0.3) Baso # (Auto) 0.0 K/mm3 (0.0-0.1) Abs Immat Gran (auto) 0.13 H K/mm3 (0.00-0.031) Absolute Neuts (auto) 6.8 H K/mm3 (1.3-6.7) Absolute Nucleated RBC 0.000 K/mm3 (0.0-0.012) Nucleated RBC % 0.0 % (0.0-0.2) Syphilis IgG/IgM Ab Non-reactive (Nonreactive) Blood Type O Positive Antibody Screen Negative Patient hx anesthesia problems: none Family hx anesthesia problems: none Results Review: All pre-operative results and documents have been reviewed as part of the pre-operative evaluation. [facility] Past Medical History Medical History (Updated 04/26/25 @ 19:18 by Maria Isabel Benitez CRNA) Anxiety IUP (intrauterine ), incidental Depression Family History Family History Father Diabetes mellitus Depression Mother Depression Sibling Asthma Depression Grandparent Breast cancer Diabetes mellitus Social History Social History Smoking status: Never smoker Second hand tobacco smoke exposure: No Alcohol intake: current Substance use: never Do You Feel Safe in your Home?: No Lack of Transportation: No Lack of Food: Never True Current Housing: I Have Housing Concerned About Future Housing: No Difficulty Paying Gas/Electric Bills: No Difficulty Paying for Meds: No Currently Unemployed: No Education: Bachelor's Degree Difficulty w/ Childcare or Family Care: No Spiritual care concerns: No Exam Day of Procedure 04/26/25 19:17
[2025-04-27] VITALS (214 sets, daily range): BP systolic 84–133; BP diastolic 30–89; PULSE 61–167; TEMP 36.5–38.6; O2SAT 74–100
[2025-04-27] MEDS: LACTATED RINGERS 1,000 ML 125 ML IV CONT ×3 (07:59→18:36)
[2025-04-27] MEDS: OXYTOCIN 30 UNITS/NS 500 ML 30 UNITS/500 ML BAG IV CONT (07:59)
--- NOTE | 2025-04-27 09:01 | PM.IMHP ---
H&P: HPI History of Present Illness Date/Time: 04/27/25 09:01 Chief Complaint: Induction of labor Narrative: 24 y/o G0 at 40 4/ with EDC 04/22/25 admitted for MIL. PNC uncomplicated. She has been informed of options of induction of labor and risk benefits versus spontaneous labor. She opted for induction of labor. Review of Systems Review of Systems: All systems reviewed & are unremarkable except as noted in HPI and below Constitutional: Constitutional: Reports no additional constitutional complaints and Denies headache(s) Eyes: Eyes: Denies spots in vision ENT: Reports system reviewed and no additional complaints, except as documented and Denies headache(s) Cardiovascular: Cardiovascular: Denies chest pain and Denies dyspnea Respiratory: Respiratory: Denies dyspnea Gastrointestinal: Gastrointestinal: Reports no additional gastrointestinal complaints Genitourinary: Genitourinary: Reports amenorrhea Musculoskeletal: Musculoskeletal: Reports no additional musculoskeletal complaints Integumentary/Breasts: Skin/Breast: Denies breast mass and Denies rash Neurologic: Denies headache(s) Psychiatric: Psychiatric: Reports no additional psychiatric complaints [facility] Past Medical History Medical History Anxiety IUP (intrauterine ), incidental Depression Family History Family History Father Diabetes mellitus Depression Mother Depression Sibling Asthma Depression Grandparent Breast cancer Diabetes mellitus Social History Social History Smoking status: Never smoker Second hand tobacco smoke exposure: No Alcohol intake: current Substance use: never Do You Feel Safe in your Home?: No Lack of Transportation: No Lack of Food: Never True Current Housing: I Have Housing Concerned About Future Housing: No Difficulty Paying Gas/Electric Bills: No Difficulty Paying for Meds: No Currently Unemployed: No Education: Bachelor's Degree Difficulty w/ Childcare or Family Care: No Spiritual care concerns: No Meds Home Medications and Allergies Home Medications ?Medication ?Instructions ?Recorded ?Confirmed ?Type vitamin#30 30 mg iron-10 1 cap PO DAILY 09/14/24 04/26/25 History mg iron-folic acid 1 mg-omg3 capsule Allergies Allergy/AdvReac Type Severity Reaction Status Date / Time No Known Drug Allergies AdvReac Mild na Verified 04/26/25 17:21 Vital Signs Vital Signs - 24 hr 04/26/25 17:19 04/26/25 17:20 04/26/25 17:24 Temperature Pulse Rate 92 Blood Pressure 130/84 Pulse Oximetry 96 96 Oxygen Delivery 04/26/25 17:29 04/26/25 17:30 04/26/25 18:00 Temperature 97.8 F Pulse Rate 82 Blood Pressure 122/80 Pulse Oximetry 97 Oxygen Delivery 04/26/25 18:05 04/26/25 20:42 04/26/25 22:30 Temperature 98 F Pulse Rate 96 76 Blood Pressure 111/73 108/54 L Pulse Oximetry Oxygen Delivery Room Air 04/27/25 01:52 04/27/25 05:37 Temperature 98 F 98 F Pulse Rate 64 68 Blood Pressure 105/55 L 100/53 L Pulse Oximetry Oxygen Delivery Exam Const: General: no acute distress Eyes: General: appearance normal, both eyes and all related structures Resp: Effort & Inspection: normal respiratory effort Cardio: Rate: regular rate GI: Other: Gravid no fundal tenderness no right upper quadrant pain Skin: General skin exam: no rashes or lesions noted Neuro: Cognition (Neuro): normal cognition Extrem: General: normal to inspection Psych: Mental Status: mental status grossly normal H&P: Results Labs Labs: Short CBC 04/26/25 Range/Units 17:44 WBC 10.2 H (4.5-10.0) K/mm3 Hgb 12.6 (12.0-15.0) g/dL Hct 37.0 (37.0-47.0) % Plt Count 194 (150-375) k/mm3 Assessment and Plan Assessment and plan (1) Elective induction of labor planned: Status: Acute Assessment and Plan: 1. Admit 2. Cytotec then pitocin.
[2025-04-27] MEDS: ONDANSETRON INJ 4 MG/2 ML VIAL IV PUSH (13:13)
[2025-04-27] MEDS: CALCIUM CARBONATE (TUMS) 500 MG (200 MG ELEMENTAL) PO (17:18)
[2025-04-27] MEDS: diphenhydrAMINE HCl CAP 25 MG CAPSULE PO (17:18)
[2025-04-27] MEDS: ACETAMINOPHEN 500 MG TABLET 1000 MG PO (21:07)
[2025-04-27] MEDS: AMPICILLIN SODIUM 2 GM in SODIUM CHLORIDE 0.9% IV 100 ML 200 ML IVPB (21:57)
[2025-04-27] MEDS: GENTAMICIN SULFATE INJ 365 MG in DEXTROSE 5% 100 ML 100 MG IVPB (22:31)
[2025-04-28] VITALS (42 sets, daily range): BP systolic 93–130; BP diastolic 42–76; PULSE 72–123; RESP 16–18; TEMP 36.3–37.1; O2SAT 95–100
[2025-04-28] MEDS: LIDOCAINE 1% LOCAL INJ 10 ML VIAL 20 ML INFILTRATE (01:56)
[2025-04-28] MEDS: LIDOCAINE 1% LOCAL INJ 20 ML VIAL (01:56)
[2025-04-28] MEDS: OXYTOCIN 30 UNITS/NS 500 ML 30 UNITS/500 ML BAG 125 UNITS IV CONT (02:17)
--- NOTE | 2025-04-28 02:18 | PM.OBPNVD ---
OB - PN: Subj Subjective Date/time seen: 04/28/25 02:18 Interval history: fht 135, cat 1, cervix 2/60/-3, AROM, clear. Continue Pitocin. OB - PN: Obj Data Labs 04/26/25 17:44 OB - PN A/P Time Spent With Patient Time: Total time spent is greater than 50% in coordination of care (as documented) at patient's floor/unit and/or counseling patient:
--- NOTE | 2025-04-28 02:23 | PM.OBPNVD ---
OB - PN: Subj Subjective Date/time seen: 05/07/25 12:30 Interval history: fht 135, cat 1, cervix 2/80/-2, IUPC placed, freq ctx. OB - PN: Obj Data Labs 04/26/25 17:44 OB - PN A/P Time Spent With Patient Time: Total time spent is greater than 50% in coordination of care (as documented) at patient's floor/unit and/or counseling patient:
--- NOTE | 2025-04-28 02:30 | PM.OBPRVD ---
OB - Vaginal Delivery Note Procedure Delivery date: 04/28/25 Induction method: Per Misoprostol Protocol and Per Pitocin Protocol Delivery augmentation: Rupture of Membranes Delivery monitor: External FHT and Internal Uterine Route of delivery: Laceration Description: Vaginal (right sidewall) Delivery repair: vicryl (3.0 vicryl) Specimen: Yes (placenta and cord) Quantitative Blood Loss (ml): 200 Anesthesia type: Epidural Disposition: Floor Complications: No immediate complications Narrative: She was admitted for [facility]. She had 3 doses of Cytotec and the am of 04/27/25, she was 2 cm. Pitocin was started. She had AROM on morning of 04/27/24. IUPC placed later to better contractions. She progressed to active labor. She did have a fever of 101.3 and baseline heart rate increased to 150s. Initiated Tylenol and antibiotics for chorioamnionitis. Fever did decrease. She dilated to complete. She delivered a male infant. Nose mouth suctioned at perineum. The rest of delivered with gently traction. Lose cord wrapped around leg x 2 reduced. Infant placed on maternal abdomen. Terminal meconium noted. Pitocin started. Placenta delivered spontaneously and intact and was noted to be bilobed. She sustained a small right vaginal wall laceration near introitus repaired with 3.0 vicryl figure of eight sutures. Hemostasis noted. Baby Date of : 04/28/25 Time of : 01:47 Gestational Age by Date: 40 Infant gender: Male Weight (pounds): 8 Weight (ounces): 14 presentation: vertex position: Right Occiput Anterior Placenta delivery description: Spontaneous Cord Vessel Description: 3 Vessels and Around Extremity (x2) score one minute: 8 score five minutes: 9
[2025-04-28] MEDS: IBUPROFEN 600 MG TABLET PO ×2 (03:40→16:10)
[2025-04-28] MEDS: CLINDAMYCIN 900 MG/D5W 50 ML 900 MG/50 ML PIGGYBACK 50 MG IVPB ×3 (04:26→20:22)
--- NOTE | 2025-04-28 05:08 | OBPPTRN ---
Patient transferred to post room #286 via wheelchair. Support person present. Oriented to unit, room, information board, rooming in, admission packet and security measures. Patient verbalizes understanding.
--- NOTE | 2025-04-28 07:55 | PC.NURSE ---
Consulted with patient to assess needs related to . Discussed with mother her successes, concerns and any questions she has. We reviewed working with the , supporting breast, protecting her nipples with an optimal deep latch, good positioning, and good hand washing. Encouraged understanding the benefits of skin to skin, responding to feeding cues, frequencies of feeding 8-12 times in 24 hours (approximately 2-3 hours), duration of feedings, milk production, intake/output feeding sheet and signs of adequate intake encouraging swallowing at the breast. Reviewed positioning and alignment, supporting breast, off-centered (asymmetrical latch) and leading with the chin with big, open, wide gape. latched optimally to the [right] breast in [cross cradle] position. Education given to the mother of how to visualize the suckling (with good rocking jaw motion) swallows (dropping of the lower jaw) and how to listen for drinking at the breast (the ka sound). The was [able] to maintain latch without discomfort to mother. Nipple care reviewed with optimal latch, good positioning and using clean hands when touching her breast. Mother did have some bruising above left nipple from improper latch through the night. Encouraged to call out for assistance with feeds. Resources used to facilitate learning were used from the [visual handouts/ tool/mom and baby guide]. Mother voiced understanding of the education shared, to call for assistance if the infant does not latch or if there is discomfort with . Reported to the Primary RN.
[2025-04-28] MEDS: DOCUSATE SODIUM 100 MG CAPSULE PO ×2 (08:38→16:10)
[2025-04-28] MEDS: ACETAMINOPHEN 325 MG TABLET 650 MG PO (08:38)
[2025-04-28] MEDS: MULTIVIT/MIN/PREN/FOL AC/IRON TABLET 1 TAB PO (08:38)
--- NOTE | 2025-04-28 08:52 | S_PTH ---
PATIENT: Jo Dejesus LOC: [facility] U#:[id number] AGE/SX: 24/F ROOM: 286 RE04/26/[address]: Marlyn Real MD : [id number] BED: 00 DIS: 04/30/2025 SPEC #: [id number] RECD: 04/28/25 09:04 STATUS: MOOSE HOOEVR #: [id number] NAYELI: 04/28/25 08:[address]: Lior Sanchez DEPT: [facility] Surgical RECD BY: Carol Jones ENTERED: 04/28/25 09:04 SP TYPE: Surgical OTHR DR: UNKNOWN,DOCTOR Tissues: A - Placenta Procedures: Hematoxylin and Eosin Stain Gross and Microscopic Level 5
[2025-04-28 09:01] LABS: Estimated CRCL calculation 94 ml/min; Estimated Glomerular Filt Rate > 60
[2025-04-28] MEDS: GENTAMICIN SULFATE INJ 365 MG in DEXTROSE 5% 100 ML 100 MG IVPB (23:35)
[2025-04-29] VITALS: BP 104/69; PULSE 88; RESP 18; TEMP 36.3; O2SAT 99
[2025-04-29 04:30] VITALS: BP 91/47; PULSE 73; RESP 18; TEMP 37; O2SAT 100
[2025-04-29 05:07] LABS: Hematocrit 38.2 % (37.0-47.0); Hemoglobin 12.4 g/dL (12.0-15.0)
--- NOTE | 2025-04-29 07:50 | P.PNOB_ITS ---
OB - PN: Subj Subjective Date/time seen: 04/29/25 07:50 Interval history: She reports adequate pain control, denies leg pain. Tolerating regular diet. Patient comments: tolerating diet and other (Decreasing lochia.) OB - PN: Obj Data Labs 04/29/25 04:36 04/28/25 08:43 Labs: Laboratory Results - last 24 hr 04/28/25 04/29/25 08:43 04:36 Hgb 12.4 Hct 38.2 Creatinine 0.77 Estim Creat Clear Calc 94 Estimated GFR > 60 Random Gentamicin 2.8 L OB - PN A/P Plan day: 1 Plan: routine care Comments: Patient doing well. Time Spent With Patient Time: Total time spent is greater than 50% in coordination of care (as documented) at patient's floor/unit and/or counseling patient: Exam 2 Psych: Affect: normal affect Other: Abd: fundus firm below umbilicus, nontender Perineum: healing Ext: nontender
[2025-04-29 08:00] VITALS: BP 94/52; PULSE 78; RESP 16; TEMP 36.8; O2SAT 96
[2025-04-29] MEDS: MULTIVIT/MIN/PREN/FOL AC/IRON TABLET 1 TAB PO (09:29)
[2025-04-29] MEDS: DOCUSATE SODIUM 100 MG CAPSULE PO ×2 (09:30→16:31)
[2025-04-29] MEDS: IBUPROFEN 600 MG TABLET PO ×2 (09:30→16:31)
--- NOTE | 2025-04-29 13:02 | WPDANLDPN2 ---
Anes-Prog Note L&D Date/Time: 04/29/25 13:02 Comfortable throughout: labor and delivery Neuraxial method: epidural Epidural/Spinal procedure site: clean & non-tender Neuro status: Neuro function grossly intact. Cardiovascular status: normal Respiratory status: normal Airway patency: baseline Mental status: baseline Post-Op hydration status: normal Vital Signs: Last Vital Signs Temp 36.8 C 04/29/25 08:00 Pulse 78 04/29/25 08:00 Resp 16 04/29/25 08:00 BP 94/52 L 04/29/25 08:00 Pulse Ox 96 04/29/25 08:00 O2 Del Method Room Air 04/28/25 11:40 Pain score (VAS): 1 Post-procedural complaints: none Patient feedback: Patient satisfied with anesthetic care.
--- NOTE | 2025-04-29 17:17 | PC.NURSE ---
1516.Met with patient to assess and discuss needs related to feeding. Reviewed should breastfeed 8-12 times in 24 hours (approximately every 2-3 hours), watching for early feeding cues. If is sleepy, unwrap and place baby skin to skin. Discussed signs that is effectively , i.e. sufficient voids and stools, jaundice within normal limits, <10% weight loss from . Mother educated on milk production, supply and demand, and expectations for in the immediate period. Encouraged feeding on demand and feeding durations of 15 minutes or greater. Infant is currently on the 15-15-15 feeding plan. Nipple shield provided to mother due to [nipple pain with feeding and flat nipples]. Reviewed good handwashing, cleaning the nipple shield and the appropriate way to apply and use as a tool. Discussed with mom the nipple shield precautions, possible complications associated with the risks and benefits. Reviewed practicing with a nipple shield, then without and how to protect the milk supply and production. Mom and baby guide referred to as a resource for outpatient services, community resources and when to call a provider. Mom voiced understanding of the importance of hand expression, nipple stimulation and initiating a pumping schedule if infant continues to nurse with the shield. Reported to the Primary RN. Observed mother latching to the [right] breast with a nipple shield in [cross cradle] position. Infant [was] able to maintain an appropriate latch. Mother [declines] nipple pain/discomfort [throughout feeding]. Encouraged mother to keep awake and nursing at the breast for as long as baby desires. Mother taught to listen for infant swallowing during feedings. Assisted dad with bottle feeding after mom breastfed baby for 15 min. Taught parents paced bottle feeding, and reviewed how to stimulate the infants suck reflex to get him to take the bottle. Infant was able to take 18cc total after his session. Mom and dad were also shown how to burb infant. resources provided including the Mom and Baby Guide and name/number on communication board. Mother verbalized understanding. Updated patient?s primary RN with education provided.?
[2025-04-29] MEDS: ACETAMINOPHEN 325 MG TABLET 650 MG PO (18:54)
[2025-04-29 20:35] VITALS: BP 107/77; PULSE 78; RESP 18; TEMP 36.8; O2SAT 100
--- NOTE | 2025-04-30 07:59 | PM.OBDSVD ---
DS: Admitting Diagnosis Discharge Date 04/30/25 <Marlyn Real MD - Last Filed: 04/30/25 10:23> Admitting Diagnosis Induction of labor <Lior Sanchez MD - Last Filed: 05/02/25 12:38> DS: Discharge Diagnosis Discharge Diagnosis (1) Vaginal delivery: Code(s): O80 - Encounter for full-term uncomplicated delivery <Lior Sanchez MD - Last Filed: 05/02/25 12:38> Status: Acute <Lior Sanchez MD - Last Filed: 05/02/25 12:38> OB - DS: Summary Hospital Course Hospital Course: She was admitted for induction of labor. Labor significant for chorioamnionitis. She had a vaginal delivery. Antibiotics continued for 24 hours after delivery. She was afebrile. Prior to discharge she had adequate pain control, was ambulating well, and tolerating regular diet. <Lior Sanchez MD - Last Filed: 05/02/25 12:38> OB Procedures : Ultrasound <Marlyn Real MD - Last Filed: 04/30/25 10:23> OB Procedures Intrapartum: Spontaneous Vag Delivery <Marlyn Real MD - Last Filed: 04/30/25 10:23> OB Procedures: : None <Marlyn Real MD - Last Filed: 04/30/25 10:23> Peripartum Data Delivery Method: Natural Vaginal <Marlyn Real MD - Last Filed: 04/30/25 10:23> Laceration Description: Vaginal (right sidewall) <Lior Sanchez MD - Last Filed: 05/02/25 12:38> Status at Discharge Functional status at discharge: independent ambulation <Marlyn Real MD - Last Filed: 04/30/25 10:23> Overall status at discharge: patient is back to baseline <Marlyn Real MD - Last Filed: 04/30/25 10:23> Time Spent with Patient Time attestation: Total time spent providing and/or coordinating discharge services: <Lior Sanchez MD - Last Filed: 05/02/25 12:38> Exam Const: General: cooperative, comfortable, no acute distress and overweight <Marlyn Real MD - Last Filed: 04/30/25 10:23> Orientation/consciousness: patient oriented x3 <Marlyn Real MD - Last Filed: 04/30/25 10:23> Resp: Effort & Inspection: normal respiratory effort <Marlyn Real MD - Last Filed: 04/30/25 10:23> Auscultation: clear to auscultation bilaterally <Marlyn Real MD - Last Filed: 04/30/25 10:23> Cardio: Rate: regular rate <Marlyn Real MD - Last Filed: 04/30/25 10:23> GI: Inspection: non-distended <Marlyn Real MD - Last Filed: 04/30/25 10:23> GI Palp: No abdominal tenderness and Yes Soft to palpation <Marlyn Real MD - Last Filed: 04/30/25 10:23> Auscultation: normal bowel sounds <Marlyn Real MD - Last Filed: 04/30/25 10:23> : Other: fundus firm <Marlyn Real MD - Last Filed: 04/30/25 10:23> Skin: General skin exam: normal color <Marlyn Real MD - Last Filed: 04/30/25 10:23> Neuro: General: patient oriented x3 <Marlyn Real MD - Last Filed: 04/30/25 10:23> Extrem: General: normal to inspection <Marlyn Real MD - Last Filed: 04/30/25 10:23> Psych: Appearance: grossly normal <Marlyn Real MD - Last Filed: 04/30/25 10:23> Affect: normal affect <Marlyn Real MD - Last Filed: 04/30/25 10:23> Attitude: cooperative <Marlyn Real MD - Last Filed: 04/30/25 10:23> Discharge Plan Discharge Attending physician on discharge: Lior Sanchez <Lior Sanchez MD - Last Filed: 05/02/25 12:38> Lior Sanchez <Marlyn Real MD - Last Filed: 04/30/25 10:23> Consulting providers: Maria Isabel Benitez <Lior Sanchez MD - Last Filed: 05/02/25 12:38> Discharging Clinician: Marlyn Real <Lior Sanchez MD - Last Filed: 05/02/25 12:38> Marlyn Real <Marlyn Real MD - Last Filed: 04/30/25 10:23> Anticipated Discharge Date/Time: 04/30/25 10:00 <Lior Sanchez MD - Last Filed: 05/02/25 12:38> Patient Disposition: Home <Lior Sanchez MD - Last Filed: 05/02/25 12:38> Activity: may shower and pelvic rest <Lior Sanchez MD - Last Filed: 05/02/25 12:38> may shower and pelvic rest <Marlyn Real MD - Last Filed: 04/30/25 10:23> Diet: regular <Lior Sanchez MD - Last Filed: 05/02/25 12:38> regular <Marlyn Real MD - Last Filed: 04/30/25 10:23> Discharge Instructions: Education: Mom and Baby Guide Given to: Mother Follow-Up: Call your delivering provider's office for an appointment to be seen in: 2 Weeks Mom and baby should come to the [facility] for the follow-up appointment. Appointment Date/Time: May 02, 2025 at 8:00 am What to expect at your follow-up visit: Blood Pressure Check Physical Assessment Call [phone] if you are unable to keep your appointment time. BREAST CARE: * Wear a snug supportive bra. * For engorgement discomfort: Breast Feeding: * Apply warm moist washcloths * Express milk as needed to relieve engorgement * Wear loose clothing Bottle Feeding: * May apply ice packs * For sore nipples: * Identify correct latch-on * Apply warm moist washcloths before and after nursing * Air dry nipples after nursing * May apply Lansinoh cream to nipples EPISIOTOMY/PERINEAL CARE: * Until bleeding stops, use your vinh bottle after urinating * Change your pad frequently throughout the day * You may take sitz baths several times a day (fill your bathtub with warm water and soak for 20 minutes.) Do NOT bathe in the water * No tub baths until seen by your physician - You may shower ACTIVITY: * Rest as much as possible. * Do not exercise or lift anything heavier than your baby (such as laundry or other children.) * Avoid stairs or driving as much as possible. * Do not put anything into the vagina. No douching, tampons, or sexual activity until seen by physician. NOTIFY PHYSICIAN IF YOU HAVE ANY QUESTIONS OR IF ANY OF THE FOLLOWING SYMPTOMS OCCUR: * If your episiotomy or incision becomes red, swollen, or more painful than what you have experienced in the hospital. * If your vaginal bleeding becomes foul smelling. * If your vaginal bleeding becomes more heavy than a period or if your bleeding changes from pink to bright red. However, you may pass an occasional walnut-sized clot once or twice for the first week . * If you experience a sharp, shooting pain in you calves. * If you discover a hard, reddened area on your breast or if you experience flu-like symptoms. DIET: * Eat regular, well-balanced meals. * Drink plenty of fluids daily. If , drink to thirst. <Lior Sanchez MD - Last Filed: 05/02/25 12:38> Patient Language: Hungarian <Lior Sanchez MD - Last Filed: 05/02/25 12:38> Stand Alone Forms: General Discharge Information <Lior Sanchez MD - Last Filed: 05/02/25 12:38> Follow-up/Referrals: Lior Sanchez MD [Physician] - 2 Weeks ( call for appointment) <Lior Sanchez MD - Last Filed: 05/02/25 12:38> Discharge Medications: New ibuprofen 800 mg tablet 800 mg PO TID Qty: 30 0RF acetaminophen 500 mg tablet 1,000 mg PO TID Qty: 60 0RF docusate sodium [Colace] 100 mg capsule 100 mg PO BID Qty: 90 0RF Continued PNV #[id number] 30 mg iron-10 mg iron-1 mg capsule 1 cap PO DAILY <Lior Sanchez MD - Last Filed: 05/02/25 12:38> Date of admission: 04/26/25 17:03 <Lior Sanchez MD - Last Filed: 05/02/25 12:38> Primary Care Provider: UNKNOWN,DOCTOR <Liro Sanchez MD - Last Filed: 05/02/25 12:38> Admitting Provider: Lior Sanchez <Lior Sanchez MD - Last Filed: 05/02/25 12:38> Attending physician on admission: Lior Sanchez <Lior Sanchez MD - Last Filed: 05/02/25 12:38> Condition: Stable <Lior Sanchez MD - Last Filed: 05/02/25 12:38>
[2025-04-30 08:34] VITALS: BP 104/57; PULSE 69; RESP 16; TEMP 36.6; O2SAT 98
[2025-04-30] MEDS: MULTIVIT/MIN/PREN/FOL AC/IRON TABLET 1 TAB PO (09:15)
[2025-04-30] MEDS: IBUPROFEN 600 MG TABLET PO (09:15)
[2025-04-30] MEDS: DOCUSATE SODIUM 100 MG CAPSULE PO (09:15)
--- NOTE | 2025-04-30 10:40 | PC.NURSE ---
Patient called out for feeding assistance. She is tearful when describing her struggles so far with feeding. Baby has difficulty latching and staying awake. Mom is concerned he doesn't want her nipple now that he has had an artificial nipple. Reviewed how infants have to learn to do both and that can take practice. She has nipple trauma to both nipple faces with scabbing. Two bruises on the left areola above the nipple. Feeding plan initiated yesterday. Reviewed signs of deep latch and how to maintain throughout the feeding by keeping baby very close to the breast. Assisted with latch on the right breast. Mom feels pain initially but with some breast compression to allow baby to draw more tissue into his mouth she feels a decrease in pain. Baby fed about five minutes with swallows noted. We then switched to the left breast and mom was able to latch independently. She is educated on making a compressed 'bite' for baby if she is unable to achieve the deep latch easily. Reviewed when to use the shield, when to pump, and when to supplement. Will review feeding plan prior to discharge. Patient feels this is the best feeding baby has had so far. She hears swallows and observes how his jaw makes wide movements when he is suckling nutritively. She is encouraged to try for 15 minute feedings. If baby does not feed well, she is instructed to supplement and pump. Patient knows that she can call out for assistance at any time. RN updated.
--- NOTE | 2025-04-30 13:20 | PC.NURSE ---
Primary RN states that patient is about to breastfeed. Mom and dad are changing a diaper together. Mom requests that I observe her positioning and latching baby. She puts baby in cross cradle on the left side and baby latches with very little effort. Mom is reminded to bring baby's head away from the breast until he gives a very wide gape and then to bring him in quickly. She declines pain with latch. She did a good job with following my suggestions and latching baby deeply. Encouraged her to call out for assistance on the right breast if needed. Patient seems to have made a marked improvement with feeding and latching since yesterday. Patient is encouraged that she is doing a good job with and that it takes time and practice. She knows to expect that some feedings will go well and others will be more difficult as she and baby learn together. Father present and supportive but not very involved with breast feedings. Primary RN updated.
== END 2025-04-30 16:00 | disposition home or self-care (01) | DRG 805 ==
LOC: ANHOB2 04-30 08:01 → ANHLDR 05-02 13:27 → ANHOB2 05-02 13:27
PROVIDERS: Admitting Provider Obstetrics & Gynecology; Visit Provider Obstetrics & Gynecology
DX: O69.82X0 Labor and delivery complicated by other cord entanglement, without compression, not applicable or unspecified (principal); O41.1230 Chorioamnionitis, third trimester, not applicable or unspecified; Z37.0 Single live birth; Z3A.40 40 weeks gestation of pregnancy; O70.0 First degree perineal laceration during delivery; O77.0 Labor and delivery complicated by meconium in amniotic fluid
CPT/HCPCS: 36415; 80170; 82565; 85014; 85018; 85025; 86593; 86850; 86900; 86901; 88307; A9270; J0290; J1580; J2003; J2405; J2590; J2795; J7120